=== PATIENT | female | born 1990 | race Caucasian/White ===

== ENCOUNTER 2017-08-30 03:20 | Emergency (ER) | payer OTHER ==
--- NOTE | 2017-08-30 03:46 | ED ---
General Adult HPI - General Source: patient, police, EMS, RN notes reviewed Mode of arrival: EMS Limitations: no limitations <Alo Patel - Last Filed: 08/30/17 03:38> <Richelle Quintana - Last Filed: 08/30/17 06:46> - General Chief complaint: Psychiatric Symptoms Stated complaint: suicidal Time Seen by Provider: 08/30/17 03:34 - History of Present Illness Initial comments: 26-year-old female presents to the emergency department for a chief complaint of suicidal ideation 1 day. Patient states her boyfriend cheated on her last week. She text it him today to tell him she was going to kill herself by overdosing on medications or turning on the car immediately running in the crotch. Patient states she is still feeling suicidal. Police did petition patient. Patient has no other complaints at this time including shortness of breath, chest pain, abdominal pain, nausea or vomiting, headache, or visual changes. (Alo Patel) - Related Data Home Medications Medication Instructions Recorded Confirmed Norgestimate-Ethinyl Estradiol 1 tab PO DAILY 08/21/15 08/30/17 [Mononessa 28 Tablet] Dicyclomine [Bentyl] 10 mg PO TID 01/16/16 08/30/17 Diphenoxylate HCl/Atropine 1 tab PO QID PRN 01/16/16 08/30/17 [Lomotil] Vilazodone HCl [Viibryd] 20 mg PO DAILY 01/16/16 08/30/17 Allergies Allergy/AdvReac Type Severity Reaction Status Date / Time No Known Allergies Allergy Verified 08/30/17 03:32 Review of Systems ROS Other: All systems not noted in ROS Statement are negative. <Alo Patel - Last Filed: 08/30/17 03:38> ROS Other: All systems not noted in ROS Statement are negative. <Richelle Quintana - Last Filed: 08/30/17 06:46> ROS Statement: Those systems with pertinent positive or pertinent negative responses have been documented in the HPI. Past Medical History Past Medical History: No Reported History History of Any Multi-Drug Resistant Organisms: None Reported Past Surgical History: No Surgical Hx Reported Additional Past Surgical History / Comment(s): EGD Past Anesthesia/Blood Transfusion Reactions: No Reported Reaction Past Psychological History: Anxiety, Bipolar, Depression Smoking Status: Current every day smoker - Past Family History Mother Family Medical History: No Reported History <Alo Patel - Last Filed: 08/30/17 03:38> General Exam Limitations: no limitations General appearance: alert, in no apparent distress Head exam: Present: atraumatic, normocephalic, normal inspection Eye exam: Present: normal appearance Respiratory exam: Present: normal lung sounds bilaterally. Absent: respiratory distress, wheezes, rales, rhonchi, stridor Cardiovascular Exam: Present: regular rate, normal rhythm, normal heart sounds. Absent: systolic murmur, diastolic murmur, rubs, gallop, clicks <Alo Patel - Last Filed: 08/30/17 03:38> Course <Alo Patel - Last Filed: 08/30/17 03:38> <Richelle Quintana - Last Filed: 08/30/17 06:46> Vital Signs 08/30/17 03:27 Temperature 99 F Pulse Rate 96 Respiratory 18 Rate Blood Pressure 126/60 O2 Sat by Pulse 99 Oximetry She has been evaluated by EPS, CPS is comfortable sending her home she is advised to follow up according to the direction or return to the ER if symptoms get worse (Richelle Quintana) Medical Decision Making <Alo Patel - Last Filed: 08/30/17 03:38> <Richelle Quintana - Last Filed: 08/30/17 06:46> - Medical Decision Making 26-year-old female here for suicidal ideation 1 day after her boyfriend cheated on her. Patient does have plan in place. Patient was brought in by police after they were called by ex-boyfriend and they petitioned her. (Alo Patel) Disposition <Alo Patel - Last Filed: 08/30/17 03:38> Is patient prescribed a controlled substance at d/c from ED?: No <Richelle Quintana - Last Filed: 08/30/17 06:46> Clinical Impression: Depression Disposition: HOME SELF-CARE Condition: Good Instructions: Depression (ED) Referrals: Preeti Chun MD [Primary Care Provider] - 1-2 days
[2017-08-30 07:01] VITALS: BP 119/65; PULSE 55; RESP 19; TEMP 98.5
== END 2017-08-30 07:14 | disposition home or self-care (01) ==
LOC: EC 03:20
DX: F32.9 Major depressive disorder, single episode, unspecified (principal); R45.851 Suicidal ideations; F41.9 Anxiety disorder, unspecified; F17.200 Nicotine dependence, unspecified, uncomplicated; Z79.3 Long term (current) use of hormonal contraceptives; Z79.899 Other long term (current) drug therapy
CPT/HCPCS: 82075; 99285

== ENCOUNTER → 2018-06-18 | Outpatient (CLI) | payer OTHER ==
--- NOTE | 2018-06-18 12:22 | US ---
EXAMINATION TYPE: US pelvic complete DATE OF EXAM: 06/18/2018 COMPARISON: NONE CLINICAL HISTORY: N92.1Excessive and frequent menstruation with irre. TECHNIQUE: . Transabdominal sonographic images of the pelvis were acquired. Date of LMP: About 4 weeks ago EXAM MEASUREMENTS: Uterus: 7.0 x 3.1 x 4.2 cm Endometrial Stripe: 0.8 cm Right Ovary: 2.8 x 1.5 x 1.9 cm Left Ovary: 3.5 x 1.8 x 2.4 cm 1. Uterus: Anteverted wnl 2. Endometrium: wnl 3. Right Ovary: wnl 4. Left Ovary: Follicle visualized measuring 1.5 cm 5. Bilateral Adnexa: wnl 6. Posterior cul-de-sac: wnl IMPRESSION: No distinct abnormality is seen.
== END ==
LOC: RADUSWWP 12:03
PROVIDERS: ATTEND Obstetrics & Gynecology
DX: N92.1 Excessive and frequent menstruation with irregular cycle (principal)
CPT/HCPCS: 76856

== ENCOUNTER → 2018-07-15 | Outpatient (CLI) | payer OTHER ==
--- NOTE | 2018-07-15 16:45 | MR ---
EXAMINATION TYPE: MR brain wo con DATE OF EXAM: 07/15/2018 COMPARISON: NONE HISTORY: Headache / Other visual disturbances TECHNIQUE: Multiplanar, multisequence imaging of the brain and brainstem is performed without IV cont rast. FINDINGS: Diffusion weighted images demonstrate no evidence of a recent infarct or other diffusion abnormality. There is no extraaxial fluid collection or significant white matter signal abnormality. The ventricu lar system and cisternal spaces are normal in size and appearance. The brain volume is age appropria te. Midline structures demonstrate normal morphology. The craniocervical junction appears within normal limits. Normal vascular flow voids are present. Dominant left vertebral artery is incidentally noted. The visualized sinuses are clear and the globes are intact. IMPRESSION: No suspicious finding is seen to account for patient's symptoms of headache and visual di sturbances.
== END | disposition home or self-care (01) ==
LOC: RADMRIMAIN 14:58
PROVIDERS: ATTEND Internal Medicine
DX: R51 Headache (principal)
CPT/HCPCS: 70551

== ENCOUNTER 2019-10-08 17:47 | Inpatient (IN) | payer OTHER ==
[2019-10-08] MEDS ORDERED: ACETAMINOPHEN TAB 500 MG TAB PO STA (18:36)
[2019-10-08] MEDS ORDERED: SODIUM CHLORIDE 0.9% 1,000 ML IV STA (18:36)
[2019-10-08 19:05] LABS: Basophils # (A) 0.2 k/uL (0-0.2); Basophils % (A) 1 %; Eosinophils # (A) 0.3 k/uL (0-0.7); Eosinophils % (A) 3 %; HCT 48.5 % (34.0-46.0); HGB 16.4 gm/dL (11.4-16.0); Lymphocytes # (A) 2.8 k/uL (1.0-4.8); Lymphocytes % (A) 22 %; MCH 31.8 pg (25.0-35.0); MCHC 33.8 g/dL (31.0-37.0); MCV 94.1 fL (80.0-100.0); Mean Platelet Volume 7.4; Monocytes # (A) 0.8 k/uL (0-1.0); Monocytes % (A) 7 %; Neutrophils # (A) 8.1 k/uL (1.3-7.7); Neutrophils % (A) 65 %; Platelet Count 185 k/uL (150-450); RBC 5.16 m/uL (3.80-5.40); RDW 11.9 % (11.5-15.5); WBC 12.5 k/uL (3.8-10.6)
[2019-10-08 19:22] LABS: ALT 18 U/L (4-34); AST 18 U/L (14-36); African American GFR (CKD) >90 (>60 ml/min/1.73 sqM); Albumin 4.6 g/dL (3.5-5.0); Alkaline Phosphatase 48 U/L (38-126); Anion Gap 10 mmol/L; Blood Urea Nitrogen 12 mg/dL (7-17); Calcium 9.6 mg/dL (8.4-10.2); Carbon Dioxide 20 mmol/L (22-30); Chloride 107 mmol/L (98-107); Glucose 102 mg/dL (74-99); Non-African American GFR(CKD) >90 (>60 ml/min/1.73 sqM); Sodium 137 mmol/L (137-145); Total Bilirubin 0.3 mg/dL (0.2-1.3); Total Protein 7.3 g/dL (6.3-8.2)
--- NOTE | 2019-10-08 19:31 | XR ---
EXAMINATION TYPE: XR chest 2V DATE OF EXAM: 10/08/2019 COMPARISON: None INDICATION: Fever, neck pain TECHNIQUE: Frontal and lateral views of the chest are obtained. FINDINGS: The heart size is normal. The pulmonary vasculature is normal. The lungs are clear. Mild scoliosis within the thoracic spine IMPRESSION: 1. No acute pulmonary process.
--- NOTE | 2019-10-08 20:18 | ED ---
General Adult HPI - General Chief complaint: Fever Stated complaint: fever, sore throat, joint pain Time Seen by Provider: 10/08/19 18:26 Source: patient, RN notes reviewed, old records reviewed Mode of arrival: ambulatory Limitations: no limitations - History of Present Illness Initial comments: 28-year-old female presented for evaluation of fever, headache, sore throat. Patient additionally admits to having dysuria and thinks she may have a slight UTI. Her mother was recently diagnosed with pneumonia and ultimately secondary to this infection. She denies any known exposure to coronavirus. She denies abdominal pain. She states she has had some rhinorrhea but states this is secondary to crying and has not had much nasal congestion. She does report sore throat and mild cough. She is a current smoker. No history of asthma. - Related Data Home Medications Medication Instructions Recorded Confirmed Norgestimate-Ethinyl Estradiol 1 tab PO DAILY 08/21/15 08/30/17 [Mononessa 28 Tablet] Dicyclomine [Bentyl] 10 mg PO TID 01/16/16 08/30/17 Diphenoxylate HCl/Atropine 1 tab PO QID PRN 01/16/16 08/30/17 [Lomotil] Vilazodone HCl [Viibryd] 20 mg PO DAILY 01/16/16 08/30/17 Allergies Allergy/AdvReac Type Severity Reaction Status Date / Time No Known Allergies Allergy Verified 10/08/19 18:19 Review of Systems ROS Statement: Those systems with pertinent positive or pertinent negative responses have been documented in the HPI. ROS Other: All systems not noted in ROS Statement are negative. Past Medical History Past Medical History: No Reported History History of Any Multi-Drug Resistant Organisms: None Reported Past Surgical History: No Surgical Hx Reported Additional Past Surgical History / Comment(s): EGD, Past Anesthesia/Blood Transfusion Reactions: No Reported Reaction Past Psychological History: Anxiety, Bipolar, Depression Smoking Status: Current every day smoker Past Alcohol Use History: Occasional Past Drug Use History: None Reported - Past Family History Mother Family Medical History: No Reported History General Exam Limitations: no limitations General appearance: alert, in no apparent distress Head exam: Present: atraumatic, normocephalic Eye exam: Present: normal appearance, PERRL ENT exam: Present: other (Nasal congestion, pharyngeal erythema no tonsillar swelling or exudate) Neck exam: Present: normal inspection. Absent: tenderness, meningismus Respiratory exam: Present: normal lung sounds bilaterally. Absent: respiratory distress, wheezes Cardiovascular Exam: Present: normal rhythm, tachycardia GI/Abdominal exam: Present: soft. Absent: distended, tenderness, guarding Neurological exam: Present: alert, oriented X3, CN II-XII intact. Absent: motor sensory deficit Psychiatric exam: Present: normal affect, normal mood Skin exam: Present: warm, dry, intact. Absent: cyanosis, diaphoretic Course Vital Signs 10/08/19 18:14 Temperature 101.3 F H Pulse Rate 116 H Respiratory 18 Rate Blood Pressure 99/58 O2 Sat by Pulse 98 Oximetry Medical Decision Making - Medical Decision Making 38-year-old female presenting with fever, sore throat, myalgias, headache, mild cough, chest x-ray negative for focal pneumonia. White blood cell count 12.5, hemoglobin is 16.5 likely secondary to dehydration and concentration. She has a normal lactic acid. She did have some pharyngitis on exam, both heterophile and strep testing are negative. Urinalysis is contaminated but shows concern for UTI and the patient does complain of some dysuria. She has been treated awaiting these culture results. Patient has marginally low blood pressure, feels generally unwell. Will be admitted for IV fluids. I do have a suspicion for coronavirus in this patient, this test is pending. She will be kept in isolation awaiting test results. Patient did mention that she had a stiff neck, she has no nuchal rigidity. She is alert and otherwise well-appearing. I suspect likely viral syndrome rather than acute bacterial meningitis. - Lab Data Result diagrams: 10/08/19 18:45 10/08/19 18:45 Lab Results 10/08/19 10/08/19 10/08/19 Range/Units 18:45 18:45 18:45 WBC 12.5 H (3.8-10.6) k/uL RBC 5.16 (3.80-5.40) m/uL Hgb 16.4 H (11.4-16.0) gm/dL Hct 48.5 H (34.0-46.0) % MCV 94.1 (80.0-100.0) fL MCH 31.8 (25.0-35.0) pg MCHC 33.8 (31.0-37.0) g/dL RDW 11.9 (11.5-15.5) % Plt Count 185 (150-450) k/uL Neutrophils % 65 % Lymphocytes % 22 % Monocytes % 7 % Eosinophils % 3 % Basophils % 1 % Neutrophils # 8.1 H (1.3-7.7) k/uL Lymphocytes # 2.8 (1.0-4.8) k/uL Monocytes # 0.8 (0-1.0) k/uL Eosinophils # 0.3 (0-0.7) k/uL Basophils # 0.2 (0-0.2) k/uL Sodium 137 (137-145) mmol/L Potassium 4.0 (3.5-5.1) mmol/L Chloride 107 (98-107) mmol/L Carbon Dioxide 20 L (22-30) mmol/L Anion Gap 10 mmol/L BUN 12 (7-17) mg/dL Creatinine 0.65 (0.52-1.04) mg/dL Est GFR (CKD-EPI)AfAm >90 (>60 ml/min/1.73 sqM) Est GFR (CKD-EPI)NonAf >90 (>60 ml/min/1.73 sqM) Glucose 102 H (74-99) mg/dL Plasma Lactic Acid Chin (0.7-2.0) mmol/L Calcium 9.6 (8.4-10.2) mg/dL Total Bilirubin 0.3 (0.2-1.3) mg/dL AST 18 (14-36) U/L ALT 18 (4-34) U/L Alkaline Phosphatase 48 (38-126) U/L Total Protein 7.3 (6.3-8.2) g/dL Albumin 4.6 (3.5-5.0) g/dL Urine Color Urine Appearance (Clear) Urine pH (5.0-8.0) Ur Specific Sidney (1.001-1.035) Urine Protein (Negative) Urine Glucose (UA) (Negative) Urine Ketones (Negative) Urine Blood (Negative) Urine Nitrite (Negative) Urine Bilirubin (Negative) Urine Urobilinogen (<2.0) mg/dL Ur Leukocyte Esterase (Negative) Urine RBC (0-5) /hpf Urine WBC (0-5) /hpf Ur Squamous Epith Cells (0-4) /hpf Urine Bacteria (None) /hpf Urine Mucus (None) /hpf Urine HCG, Qual (Not Detectd) Heterophile Antibody Negative (Negative) Group A Strep Rapid (Negative) 10/08/19 10/08/19 10/08/19 Range/Units 18:45 18:45 20:20 WBC (3.8-10.6) k/uL RBC (3.80-5.40) m/uL Hgb (11.4-16.0) gm/dL Hct (34.0-46.0) % MCV (80.0-100.0) fL MCH (25.0-35.0) pg MCHC (31.0-37.0) g/dL RDW (11.5-15.5) % Plt Count (150-450) k/uL Neutrophils % % Lymphocytes % % Monocytes % % Eosinophils % % Basophils % % Neutrophils # (1.3-7.7) k/uL Lymphocytes # (1.0-4.8) k/uL Monocytes # (0-1.0) k/uL Eosinophils # (0-0.7) k/uL Basophils # (0-0.2) k/uL Sodium (137-145) mmol/L Potassium (3.5-5.1) mmol/L Chloride (98-107) mmol/L Carbon Dioxide (22-30) mmol/L Anion Gap mmol/L BUN (7-17) mg/dL Creatinine (0.52-1.04) mg/dL Est GFR (CKD-EPI)AfAm (>60 ml/min/1.73 sqM) Est GFR (CKD-EPI)NonAf (>60 ml/min/1.73 sqM) Glucose (74-99) mg/dL Plasma Lactic Acid Chin 0.9 (0.7-2.0) mmol/L Calcium (8.4-10.2) mg/dL Total Bilirubin (0.2-1.3) mg/dL AST (14-36) U/L ALT (4-34) U/L Alkaline Phosphatase (38-126) U/L Total Protein (6.3-8.2) g/dL Albumin (3.5-5.0) g/dL Urine Color Yellow Urine Appearance Cloudy H (Clear) Urine pH 5.5 (5.0-8.0) Ur Specific Sidney 1.028 (1.001-1.035) Urine Protein Trace H (Negative) Urine Glucose (UA) Negative (Negative) Urine Ketones 1+ H (Negative) Urine Blood Trace H (Negative) Urine Nitrite Negative (Negative) Urine Bilirubin Negative (Negative) Urine Urobilinogen <2.0 (<2.0) mg/dL Ur Leukocyte Esterase Moderate H (Negative) Urine RBC 4 (0-5) /hpf Urine WBC 10 H (0-5) /hpf Ur Squamous Epith Cells 21 H (0-4) /hpf Urine Bacteria Many H (None) /hpf Urine Mucus Many H (None) /hpf Urine HCG, Qual (Not Detectd) Heterophile Antibody (Negative) Group A Strep Rapid Negative (Negative) 10/08/19 Range/Units 20:20 WBC (3.8-10.6) k/uL RBC (3.80-5.40) m/uL Hgb (11.4-16.0) gm/dL Hct (34.0-46.0) % MCV (80.0-100.0) fL MCH (25.0-35.0) pg MCHC (31.0-37.0) g/dL RDW (11.5-15.5) % Plt Count (150-450) k/uL Neutrophils % % Lymphocytes % % Monocytes % % Eosinophils % % Basophils % % Neutrophils # (1.3-7.7) k/uL Lymphocytes # (1.0-4.8) k/uL Monocytes # (0-1.0) k/uL Eosinophils # (0-0.7) k/uL Basophils # (0-0.2) k/uL Sodium (137-145) mmol/L Potassium (3.5-5.1) mmol/L Chloride (98-107) mmol/L Carbon Dioxide (22-30) mmol/L Anion Gap mmol/L BUN (7-17) mg/dL Creatinine (0.52-1.04) mg/dL Est GFR (CKD-EPI)AfAm (>60 ml/min/1.73 sqM) Est GFR (CKD-EPI)NonAf (>60 ml/min/1.73 sqM) Glucose (74-99) mg/dL Plasma Lactic Acid Chin (0.7-2.0) mmol/L Calcium (8.4-10.2) mg/dL Total Bilirubin (0.2-1.3) mg/dL AST (14-36) U/L ALT (4-34) U/L Alkaline Phosphatase (38-126) U/L Total Protein (6.3-8.2) g/dL Albumin (3.5-5.0) g/dL Urine Color Urine Appearance (Clear) Urine pH (5.0-8.0) Ur Specific Sidney (1.001-1.035) Urine Protein (Negative) Urine Glucose (UA) (Negative) Urine Ketones (Negative) Urine Blood (Negative) Urine Nitrite (Negative) Urine Bilirubin (Negative) Urine Urobilinogen (<2.0) mg/dL Ur Leukocyte Esterase (Negative) Urine RBC (0-5) /hpf Urine WBC (0-5) /hpf Ur Squamous Epith Cells (0-4) /hpf Urine Bacteria (None) /hpf Urine Mucus (None) /hpf Urine HCG, Qual Not Detected (Not Detectd) Heterophile Antibody (Negative) Group A Strep Rapid (Negative) Disposition Clinical Impression: Viral infection, UTI (urinary tract infection), Dehydration Disposition: ADMITTED IP TO THIS [facility] Condition: Stable Is patient prescribed a controlled substance at d/c from ED?: No Referrals: Preeti Chun MD [Primary Care Provider] - 1-2 days Decision to Admit Reason: Admit from EC Decision Date: 10/08/19 Decision Time: 21:14
[2019-10-08 20:44] LABS: Appearance,Urine Cloudy (Clear); Bacteria,Urine Many /hpf; Bilirubin,Urine Negative (Negative); Blood,Urine Trace (Negative); Color,Urine Yellow; Glucose,Urine (UA) Negative (Negative); Ketones,Urine 1+ (Negative); Leukocyte Esterase,Urine Moderate (Negative); Mucus,Urine Many /hpf; Nitrite,Urine Negative (Negative); PH, Urine 5.5 (5.0-8.0); Protein,Urine Trace (Negative); RBC,Urine 4 /hpf (0-5); Specific Gravity,Urine 1.028 (1.001-1.035); Squamous Epithelial Cell,Urine 21 /hpf (0-4); Urobilinogen,Urine <2.0 mg/dL (<2.0); WBC,Urine 10 /hpf (0-5)
[2019-10-08] MEDS ORDERED: KETOROLAC 15 MG/ML 1 ML VIAL IVP STA (20:57)
[2019-10-08] MEDS ORDERED: cefTRIAXone IN SWFI 1,000 MG/10 ML SYRINGE IVP STA (21:09)
[2019-10-08] MEDS ORDERED: ACETAMINOPHEN TAB 325 MG TAB PO PRN (21:10)
[2019-10-08] MEDS ORDERED: NALOXONE 0.4 MG/ML 1 ML VIAL IV PRN (21:10)
[2019-10-08] MEDS: SODIUM CHLORIDE 0.9% 1,000 ML IV SCH (21:29)
[2019-10-08] MEDS: KETOROLAC 15 MG/ML 1 ML VIAL IVP SCH (23:36)
[2019-10-08] MEDS ORDERED: TEMAZEPAM 15 MG CAP PO PRN (23:50)
[2019-10-08] MEDS ORDERED: HYDROmorphone 0.5 MG/0.5 ML SYRINGE IVP PRN (23:50)
[2019-10-08] MEDS ORDERED: ALPRAZolam 0.25 MG TAB PO PRN (23:50)
[2019-10-09] MEDS: SODIUM CHLORIDE 0.9% 1,000 ML IV SCH ×3 (03:59→21:26)
[2019-10-09] MEDS: KETOROLAC 15 MG/ML 1 ML VIAL IVP SCH ×4 (05:17→23:23)
--- NOTE | 2019-10-09 05:26 | HP ---
HISTORY AND PHYSICAL DATE OF SERVICE: 10/08/2019 CHIEF COMPLAINTS: Fevers, sore throat, neck pain and headache. HISTORY OF PRESENT ILLNESS: This is a 28-year-old woman with a past medical history of multiple medical problems including history of VSD repair, history of DJD, anxiety, bipolar depression, history of nicotine dependence, being followed by Dr. Chun in the outpatient setting, not feeling well for the last 2 days. The patient is complaining of severe pain, throat pain and as well as a headache and neck pain. Patient also was febrile. Patient's fevers was 101. The patient was suspected to have UTI. Recently apparently the mother was diagnosed with pneumonia. Mother also had lung cancer and ultimately because of infection recently. No details are known at this time. 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 The patient does not have any other contact with sick individuals. There is no history of rash. No history of any loss of consciousness or seizures at this time. The strep screen was negative. WBC was elevated to 12.5. COVID-19 testing is pending at this time. Patient does has evidence of mild UTI. There is no history of any hematochezia or melena at this time. The patient also had previously self-inflicted wounds. PAST MEDICAL HISTORY: History of VSD repair, DJD, anxiety with bipolar depression. HOME MEDICATIONS: Vitamin D 2, vitamins, Tylenol, biotin. ALLERGIES: None. FAMILY HISTORY: No history of heart disease or strokes in the family. SOCIAL HISTORY: History of smoking. Occasional alcohol intake. REVIEW OF SYSTEMS: ENT: No diminished vision or hearing. CARDIOVASCULAR: No angina or palpitations. RESPIRATORY: No cough or hemoptysis. GI: As mentioned earlier. : No dysuria. NERVOUS SYSTEM: No numbness or weakness. ALLERGY/IMMUNOLOGY: No asthma or hayfever. MUSCULOSKELETAL: As mentioned earlier. HEMATOLOGY: No history of anemia. ENDOCRINE: No history of diabetes or hypothyroidism. CONSTITUTIONAL: As mentioned earlier. DERMATOLOGY: Negative. RHEUMATOLOGY: Negative. PSYCHIATRY: As mentioned earlier. PHYSICAL EXAM: GENERAL: Patient is alert, oriented x3. VITAL SIGNS: Pulse is 80, blood pressure 107/69, respirations 16, temperature is 101.3, pulse ox 98% on room air. HEENT: Conjunctivae normal. Oral mucosa shows some erythema and tonsillar enlargement also present. NECK: No jugular venous distention. No carotid bruits. No lymph node enlargement. Movements are painful, otherwise no neck stiffness appreciated. RESPIRATORY: Breath sounds diminished at the bases. HEART: S1 and S2, muffled. ABDOMEN: Soft, no tenderness. No masses palpable. EXTREMITIES: No edema, no swelling. NERVOUS SYSTEM: Higher functions as mentioned earlier. Moves all 4 limbs. No focal motor or sensory deficit. LYMPHATICS: No lymph nodes in the neck or axilla. SKIN: No ulcer, rash, bleeding. JOINTS: No active deforming arthropathy. LAB: WBC 12.4, hemoglobin 16.4, CO2 is 20, and glucose 102. UA noted. The antibody and group A strep was negative. ASSESSMENT: 1. Fever, throat pain, possible upper respiratory infection, rule out COVID-19. 2. Headache for evaluation. 3. Increased WBC. 4. Urinary tract infection present on admission with possible early sepsis present on admission. 5. History of VSD repair. 6. History of anxiety, bipolar depression. 7. History of ongoing nicotine dependence. 8. FULL CODE. RECOMMENDATIONS AND DISCUSSION: In this 28-year-old woman who presented with multiple medical issues, we will initiate broad-spectrum IV antibiotics. I would recommend Rocephin 2 grams daily and Infectious Disease evaluation. Symptomatic treatment for the pain. DVT prophylaxis. COVID- 19 has been tested. Infectious Disease evaluation. Resume the home medications. Prognosis guarded because of multiple complex medical issues. MMODL / IJN: [id number] / MTDD
[2019-10-09 07:55] LABS: Basophils # (A) 0.1 k/uL (0-0.2); Basophils % (A) 1 %; Eosinophils # (A) 0.3 k/uL (0-0.7); Eosinophils % (A) 3 %; Lymphocytes # (A) 2.6 k/uL (1.0-4.8); Lymphocytes % (A) 28 %; MCH 31.5 pg (25.0-35.0); MCHC 32.9 g/dL (31.0-37.0); MCV 95.7 fL (80.0-100.0); Mean Platelet Volume 7.3; Monocytes % (A) 11 %; Neutrophils # (A) 5.3 k/uL (1.3-7.7); Neutrophils % (A) 56 %; Platelet Count 145 k/uL (150-450); RBC 4.18 m/uL (3.80-5.40); RDW 11.9 % (11.5-15.5); WBC 9.4 k/uL (3.8-10.6)
[2019-10-09 08:06] LABS: HGB 13.2 gm/dL (11.4-16.0)
[2019-10-09] MEDS: HEPARIN SODIUM,PORCINE 5,000 UNIT/ML 1 ML VIAL SQ SCH ×2 (08:21→21:26)
[2019-10-09 08:34] LABS: ALT 13 U/L (4-34); AST 13 U/L (14-36); African American GFR (CKD) >90 (>60 ml/min/1.73 sqM); Albumin 3.1 g/dL (3.5-5.0); Alkaline Phosphatase 35 U/L (38-126); Anion Gap 4 mmol/L; Blood Urea Nitrogen 11 mg/dL (7-17); C Reactive Protein 20.3 mg/L (<10.0); Calcium 8.1 mg/dL (8.4-10.2); Carbon Dioxide 22 mmol/L (22-30); Chloride 110 mmol/L (98-107); Glucose 86 mg/dL (74-99); Non-African American GFR(CKD) >90 (>60 ml/min/1.73 sqM); Potassium 3.9 mmol/L (3.5-5.1); Sodium 136 mmol/L (137-145); Total Bilirubin 0.2 mg/dL (0.2-1.3); Total Protein 5.3 g/dL (6.3-8.2)
[2019-10-09] MEDS ORDERED: ERGOCALCIFEROL 50,000 UNIT CAP PO SCH (09:00)
[2019-10-09 09:14] LABS: Erythrocyte Sedimentation Rate 4 mm/hr (0-20)
[2019-10-09 12:34] VITALS: BMI 21.1
--- NOTE | 2019-10-09 13:30 | CT ---
EXAMINATION TYPE: CT brain wo con DATE OF EXAM: 10/09/2019 COMPARISON: MRI brain 07/15/2018 INDICATION: Headache DLP: 1098.4 mGycm, Automated exposure control for dose reduction was used. CONTRAST: None CT of the brain is performed utilizing 3 mm thick sections through the posterior fossa and 3 mm thick sections through the remaining calvarium. Study is performed within 24 hours of arrival to the hosp ital. No abnormal hyperdensity is present to suggest an acute intracranial hemorrhage. No mass lesion is evident. No acute infarcts are evident. Ventricles and sulci are appropriate for the patient age. Paranasal sinuses and mastoid air cells within the [id number] are clear. IMPRESSIONS: 1. Normal CT Brain
--- NOTE | 2019-10-09 14:08 | CT ---
CT CHEST FOR PULMONARY EMBOLISM. EXAMINATION TYPE: CT angio chest DATE OF EXAM: 10/09/2019 INDICATION: Increased D-dimer CT DLP: 278.5 mGycm, Automated exposure control for dose reduction was used. CONTRAST: Patient injected with 100 ml mL of Isovue 370. COMPARISON: None TECHNIQUE: CT of the chest is performed on a spiral scan at 2 mm thick sections. Study is performed with intravenous contrast timed for evaluation for pulmonary embolism. This will limit additional po rtions of the evaluation. 3-D MIP images reconstructed by the technologist are reviewed on the compu ter in the coronal and sagittal planes. FINDINGS: No persistent filling defects are evident to suggest an acute pulmonary embolism. There is some thickening within the right infrahilar region measuring 1.5 cm. Series 401 image 76. Hi lar adenopathy may be present. An additional lymph node may be present right perihilar region measuri ng 1.2 cm. Series 401 image 63. There may be a subcarinal lymph node measuring 1.1 cm. The ascending aorta diameter at the level of the main pulmonary artery is 2.6 cm. The main pulmonary artery diamet er at the bifurcation is 2.1 cm. There is ar density within the posterior medial right midlung measuring 1.7 x 2.2 cm. Series 401 imag e 72. Some additional oval density is within the posterior medial right midlung adjacent to the pleur al margin measuring 1.6 x 0.9 cm. Series 401 image 76. Pneumonia should be considered. Underlying calvin plasm should be considered. Follow-up is recommended. Limited CT section through the upper abdomen are unremarkable. IMPRESSIONS: 1. No acute pulmonary embolism. 2. Couple of nodular densities within the posterior medial right midlung. Infection and neoplasm are within the differential. Additional workup is recommended. Consider PET/CT. 3. Suspected enlarged right hilar and subcarinal adenopathy. PET/CT could further evaluate these find ings
[2019-10-09] MEDS: HYDROcodone/APAP 5-325MG 1 EACH TAB PO PRN ×2 (17:10→23:21)
--- NOTE | 2019-10-09 17:36 | PN ---
PROGRESS NOTE DATE OF SERVICE: 10/09/2019 This 28-year-old woman who was admitted with fever, sore throat, upper respiratory infection, is also complaining of severe headache. Patient is started on empiric antibiotics. No chest pain. No palpitations. No fever. Chest CT was done earlier today which showed upper nodular densities in the posterior medial lung, possibly outpatient followup and some suspected right hilar and subcarinal adenopathy also. No chest pain. No palpitations. No fever. PHYSICAL EXAMINATION: Alert and oriented times three. Pulse 73. Blood pressure 106/73, respiration 18, temperature 98.6, pulse ox 99% on room air. HEENT: Conjunctivae normal. NECK: No JVD. CARDIOVASCULAR: S1, S2. RESPIRATORY: Breath sounds diminished in the bases. A few scattered scattered rhonchi. ABDOMEN: Soft. NERVOUS SYSTEM: No focal deficits. The movements in the neck are painful but no neck stiffness. LABS: WBC 9, hemoglobin 13.2, sodium 136 and C-reactive protein is 20.3. UA showed some possible UTI. ASSESSMENT: 1. Fever, throat pain, possible upper respiratory infection. Rule out COVID-19. 2. Headache for evaluation. 3. Increased WBC. 4. Abnormal CT scan with subcarinal lymphadenopathy. 5. Urinary tract infection present on admission with possible early sepsis present on admission. 6. History of VSD repair. 7. History of anxiety/bipolar depression. 8. History of continued ongoing nicotine dependence. 9. FULL CODE. RECOMMENDATIONS AND DISCUSSION: Recommend to continue current medications, management, symptomatic treatment. Continue with antibiotics. Otherwise I would also recommend infectious disease evaluation and I would also ask Pulmonary to evaluate for the lymph nodes as an outpatient. Otherwise, prognosis guarded. Further recommendations to follow. MMODL / IJN: [id number] /
[2019-10-09] MEDS: PRENATAL VIT-IRON-FOLIC ACID 1 EACH CAP PO SCH (21:26)
[2019-10-10] MEDS: SODIUM CHLORIDE 0.9% 1,000 ML IV SCH ×4 (04:24→23:05)
[2019-10-10] MEDS: KETOROLAC 15 MG/ML 1 ML VIAL IVP SCH ×4 (05:45→23:04)
--- NOTE | 2019-10-10 07:04 | P.CONS ---
History of Present Illness - Reason for Consult Consult date: 10/09/19 Fever Requesting physician: Monserrat Dean - Chief Complaint Fever dysuria x few days - History of Present Illness Patient is 28 female with past medical history significant for recurrent urinary tract infection patient had presented to [facility] last night for evaluation of fever and headache and sore throat patient still has going on for a few days before presenting to the hospital patient also complaining of burning of urine and some suprapubic discomfort which are typical of her electric infection patient denies having any chest pain or shortness of breath or cough denies any nausea no vomiting no diarrhea with the symptoms the patient has been evaluated by the physician on arrival to ER, patient did have a fever of 101F patient did have elevated white count of 12.5 thousand kidney function was normal his liver enzymes are normal CRP elevated and the patient did have a positive urine, chest x-ray has been negative she developed gram was negative for PE however did show some nodularity within posterior medial right mid lung, infection he was consulted for further management of antibiotic therapy patient is currently on Rocephin 2 g daily and did have resolution of her fever Review of Systems Positive point has been mentioned in the HPI rest of the systems are negative Past Medical History Past Medical History: No Reported History Additional Past Medical History / Comment(s): VSD History of Any Multi-Drug Resistant Organisms: None Reported Past Surgical History: No Surgical Hx Reported Additional Past Surgical History / Comment(s): EGD, Past Anesthesia/Blood Transfusion Reactions: No Reported Reaction Past Psychological History: Anxiety, Bipolar, Depression Smoking Status: Current every day smoker Past Alcohol Use History: Occasional Past Drug Use History: None Reported - Past Family History Mother Family Medical History: No Reported History Medications and Allergies Home Medications Medication Instructions Recorded Confirmed Type Acetaminophen [Tylenol] 1,000 mg PO DAILY PRN 10/08/19 10/08/19 History Biotin (Unknown Strength) 1 tab PO HS 10/08/19 10/08/19 History Ergocalciferol [Vitamin D2 50,000 unit PO Q7D 10/08/19 10/08/19 History (DRISDOL)] Pnv,Calcium 72/Iron/Folic Acid 1 tab PO HS 10/08/19 10/08/19 History [ Plus Tablet] Allergies Allergy/AdvReac Type Severity Reaction Status Date / Time No Known Allergies Allergy Verified 10/08/19 21:31 Physical Exam Vitals: Vital Signs Temp Pulse Pulse Pulse Resp BP BP 10/09/19 15:00 98.6 F 73 19 106/70 10/09/19 07:00 98.5 F 60 18 91/53 10/09/19 03:58 109/73 10/09/19 02:30 97.8 F 65 16 96/54 10/08/19 22:15 98.0 F 77 19 96/63 10/08/19 21:33 98.3 F 80 16 107/69 10/08/19 18:14 101.3 F H 116 H 18 99/58 Pulse Ox 10/09/19 15:00 99 10/09/19 07:00 98 10/09/19 03:58 10/09/19 02:30 99 10/08/19 22:15 97 10/08/19 21:33 98 10/08/19 18:14 98 Intake and Output 10/09/19 10/09/19 10/09/19 06:59 14:59 22:59 Intake Total 1040 1040 Balance 1040 1040 Intake: Intake, IV Titration 1040 1040 Amount Sodium Chloride 0.9% 1, 1040 1040 000 ml @ 130 mls/hr IV . Q7H42M [facility] Rx#:[id number] Other: Voiding Method Toilet # Voids 2 2 Weight 61.235 kg GENERAL DESCRIPTION: Middle-aged female lying in bed, no distress. No tachypnea or accessory muscle of respiration use. HEENT: Shows Pallor , no scleral icterus. Oral mucous membrane is dry. No pharyngeal erythema or thrush NECK: Trachea central, no thyromegaly. LUNGS: Unlabored breathing. Clear to auscultation anteriorly. No wheeze or crackle. HEART: S1, S2, regular rate and rhythm. No loud murmur ABDOMEN: Soft, no tenderness , guarding or rigidity, no organomegaly EXTREMITIES: No edema of feet. SKIN: No rash, no masses palpable. NEUROLOGICAL: The patient is awake, alert, oriented x3, mood and affect normal. Results CBC & Chem 7: 10/09/19 07:20 10/09/19 07:20 Labs: Abnormal Lab Results - Last 24 Hours (Table) 10/08/19 10/08/19 10/08/19 Range/Units 18:45 18:45 20:20 WBC 12.5 H (3.8-10.6) k/uL Hgb 16.4 H (11.4-16.0) gm/dL Hct 48.5 H (34.0-46.0) % Plt Count (150-450) k/uL Neutrophils # 8.1 H (1.3-7.7) k/uL D-Dimer (<0.60) mg/L FEU Sodium (137-145) mmol/L Chloride (98-107) mmol/L Carbon Dioxide 20 L (22-30) mmol/L Glucose 102 H (74-99) mg/dL Calcium (8.4-10.2) mg/dL AST (14-36) U/L Alkaline Phosphatase (38-126) U/L C-Reactive Protein (<10.0) mg/L Total Protein (6.3-8.2) g/dL Albumin (3.5-5.0) g/dL Urine Appearance Cloudy H (Clear) Urine Protein Trace H (Negative) Urine Ketones 1+ H (Negative) Urine Blood Trace H (Negative) Ur Leukocyte Esterase Moderate H (Negative) Urine WBC 10 H (0-5) /hpf Ur Squamous Epith Cells 21 H (0-4) /hpf Urine Bacteria Many H (None) /hpf Urine Mucus Many H (None) /hpf 10/09/19 10/09/19 10/09/19 Range/Units 07:20 07:20 07:20 WBC (3.8-10.6) k/uL Hgb (11.4-16.0) gm/dL Hct (34.0-46.0) % Plt Count 145 L (150-450) k/uL Neutrophils # (1.3-7.7) k/uL D-Dimer 0.63 H (<0.60) mg/L FEU Sodium 136 L (137-145) mmol/L Chloride 110 H (98-107) mmol/L Carbon Dioxide (22-30) mmol/L Glucose (74-99) mg/dL Calcium 8.1 L (8.4-10.2) mg/dL AST 13 L (14-36) U/L Alkaline Phosphatase 35 L (38-126) U/L C-Reactive Protein 20.3 H (<10.0) mg/L Total Protein 5.3 L (6.3-8.2) g/dL Albumin 3.1 L (3.5-5.0) g/dL Urine Appearance (Clear) Urine Protein (Negative) Urine Ketones (Negative) Urine Blood (Negative) Ur Leukocyte Esterase (Negative) Urine WBC (0-5) /hpf Ur Squamous Epith Cells (0-4) /hpf Urine Bacteria (None) /hpf Urine Mucus (None) /hpf Microbiology - Last 24 Hours (Table) 10/08/19 18:45 Group A Strep Throat Culture - Preliminary Throat Assessment and Plan Assessment: 1- patient is in the hospital with sepsis in this patient who did have a fever and elevated white count patient did have dysuria and a positive UA likely secondary to urinary tract infection, and will need to cover for enteric gram- negative with the likely pathogen patient currently denies having respiratory symptoms clinically doubt pneumonia and there is no evidence of infection at any other part of the body (1) Sepsis Current Visit: Yes Status: Acute Code(s): A41.9 - SEPSIS, UNSPECIFIED ORGANISM SNOMED Code(s): 08253080 (2) UTI (urinary tract infection) Current Visit: Yes Status: Acute Code(s): N39.0 - URINARY TRACT INFECTION, SITE NOT SPECIFIED SNOMED Code(s): 40346418 Plan: 1- Rocephin 2 g IV piggyback daily 2-gentle IV fluid We will follow on clinical condition and cultures to further adjust medication if needed Thank you for this consultation will follow this patient with you Time with Patient: Greater than 30
[2019-10-10] MEDS: HYDROcodone/APAP 5-325MG 1 EACH TAB PO PRN ×3 (08:36→23:05)
[2019-10-10] MEDS: HEPARIN SODIUM,PORCINE 5,000 UNIT/ML 1 ML VIAL SQ SCH (08:37)
[2019-10-10 12:32] LABS: Basophils # (A) 0.1 k/uL (0-0.2); Basophils % (A) 1 %; Eosinophils # (A) 0.1 k/uL (0-0.7); Eosinophils % (A) 2 %; HCT 42.1 % (34.0-46.0); HGB 13.6 gm/dL (11.4-16.0); Lymphocytes # (A) 2.2 k/uL (1.0-4.8); Lymphocytes % (A) 29 %; MCH 30.9 pg (25.0-35.0); MCHC 32.3 g/dL (31.0-37.0); MCV 95.6 fL (80.0-100.0); Mean Platelet Volume 7.4; Monocytes # (A) 0.7 k/uL (0-1.0); Monocytes % (A) 9 %; Neutrophils # (A) 4.3 k/uL (1.3-7.7); Neutrophils % (A) 57 %; Platelet Count 125 k/uL (150-450); WBC 7.6 k/uL (3.8-10.6)
[2019-10-10 12:53] LABS: African American GFR (CKD) >90 (>60 ml/min/1.73 sqM); Anion Gap 5 mmol/L; Blood Urea Nitrogen 6 mg/dL (7-17); Calcium 8.1 mg/dL (8.4-10.2); Carbon Dioxide 23 mmol/L (22-30); Chloride 108 mmol/L (98-107); Glucose 84 mg/dL (74-99); Non-African American GFR(CKD) >90 (>60 ml/min/1.73 sqM); Potassium 3.9 mmol/L (3.5-5.1); Sodium 136 mmol/L (137-145)
--- NOTE | 2019-10-10 16:02 | PN ---
PROGRESS NOTE DATE OF SERVICE: 10/10/2019 This is a 28-year-old woman who was admitted with fever, throat pain with possible upper respiratory infection is being closely monitored. COVID-19 is negative. Patient is on empiric antibiotics. Neck pain is still persisting. There is no neck stiffness. The cultures are negative so far. The white count is 7.6, platelets are 125. is 20.3. ASSESSMENT: 1. Fever, throat pain, possible upper respiratory infection, viral syndrome, COVID-19 ruled out. 2. Headache for evaluation secondary to viral syndrome. 3. Increased WBC, improved. 4. Thrombocytopenia. 5. Abdominal CAT scan with subcarinal lymphadenopathy. 6. Urinary tract infection, present on admission with possible early sepsis, present on admission. 7. History of VSD repair. 8. History of anxiety, depression bipolar. 9. History of continued ongoing nicotine dependence. 10.FULL CODE. RECOMMENDATION: Recommend to continue current medications, symptomatic treatment. Otherwise, continue with the antibiotics. I would stop the heparin at this time. Otherwise, will continue to monitor. Guarded prognosis because of multiple complex medical issues. Will closely follow with Infectious Disease. As mentioned earlier, cultures are negative. Further recommendation to follow. MMODL / IJN: [id number] / LEENA
[2019-10-10] MEDS: PRENATAL VIT-IRON-FOLIC ACID 1 EACH CAP PO SCH (19:47)
--- NOTE | 2019-10-10 22:35 | PN ---
PROGRESS NOTE DATE OF SERVICE: 10/10/2019 REASON FOR FOLLOWUP: Urinary tract infection. INTERVAL HISTORY: The patient is currently afebrile. The patient is feeling slightly better, breathing comfortably. No chest pain, shortness of breath or cough. No abdominal pain. Urinary symptoms have improved. No diarrhea. PHYSICAL EXAMINATION: Blood pressure is 97/57, pulse of 72, temperature 98.4. She is 98% on room air. General description is a middle-aged female lying in bed in no distress. RESPIRATORY SYSTEM: Unlabored breathing. Clear to auscultation anteriorly. HEART: S1, S2. Regular rate and rhythm. ABDOMEN: Soft. No tenderness. LABS: Hemoglobin 13.6, white count 7.6, BUN of 6, creatinine 0.63. Blood culture negative. Urine culture unfortunately not collected. DIAGNOSTIC IMPRESSION AND PLAN: Patient with a fever. Source is likely Gram-negative urinary tract infection. Unfortunately urine cultures were not done. However, the patient clinically is responding to the Rocephin, which will be continued. Monitor clinical course closely. MMODL / IJN: [id number] /
[2019-10-11] MEDS: KETOROLAC 15 MG/ML 1 ML VIAL IVP SCH ×3 (05:05→18:31)
[2019-10-11] MEDS: HYDROcodone/APAP 5-325MG 1 EACH TAB PO PRN ×3 (07:45→22:07)
[2019-10-11 09:39] LABS: Basophils # (A) 0.1 k/uL (0-0.2); Basophils % (A) 1 %; Eosinophils # (A) 0.3 k/uL (0-0.7); Eosinophils % (A) 3 %; HGB 13.8 gm/dL (11.4-16.0); Lymphocytes % (A) 25 %; MCH 31.4 pg (25.0-35.0); MCHC 32.8 g/dL (31.0-37.0); MCV 95.8 fL (80.0-100.0); Mean Platelet Volume 7.2; Monocytes # (A) 0.7 k/uL (0-1.0); Monocytes % (A) 8 %; Neutrophils # (A) 4.8 k/uL (1.3-7.7); Neutrophils % (A) 59 %; Platelet Count 129 k/uL (150-450); RBC 4.38 m/uL (3.80-5.40); RDW 12.1 % (11.5-15.5)
[2019-10-11 09:44] LABS: African American GFR (CKD) >90 (>60 ml/min/1.73 sqM); Anion Gap 4 mmol/L; Blood Urea Nitrogen 6 mg/dL (7-17); Calcium 8.2 mg/dL (8.4-10.2); Carbon Dioxide 25 mmol/L (22-30); Chloride 109 mmol/L (98-107); Glucose 93 mg/dL (74-99); Non-African American GFR(CKD) >90 (>60 ml/min/1.73 sqM); Potassium 4.6 mmol/L (3.5-5.1); Sodium 138 mmol/L (137-145)
[2019-10-11] MEDS: SODIUM CHLORIDE 0.9% 1,000 ML IV SCH ×2 (11:46→16:04)
--- NOTE | 2019-10-11 14:50 | PN ---
PROGRESS NOTE DATE OF SERVICE: 10/11/2019 This is a 28-year-old gentleman who was admitted with throat pain and neck pain possibly had a viral syndrome. The patient is on broad-spectrum IV antibiotics. No chest pain. No palpitations. There is no neck stiffness. PHYSICAL EXAMINATION: Alert and oriented x3. Pulse 58, blood pressure 101/60, respirations 16, temperature 98.4, pulse ox 98% on room air skin: RESPIRATORY SYSTEM:: Breath sounds diminished at the bases, no rhonchi, no crackles. ABDOMEN: Soft, nontender. NERVOUS SYSTEM: No neck stiffness. LABS: WBC 8 platelets 129. ASSESSMENT: 1. Fever, throat pain, possible upper respiratory infection, possible acute viral syndrome. COVID-19 rule out. Headache for evaluation post secondary to viral syndrome. 2. Increased WBC, improved. 3. Thrombocytopenia secondary to viral syndrome. Abnormal CAT scan showed subcarinal lymphadenopathy. 4. Urinary tract infection, present on admission with possible early sepsis, present on admission. 5. History of VSD repair. 6. History of anxiety, depression, bipolar. 7. History of continued ongoing nicotine dependence. 8. FULL CODE. RECOMMENDATION: Continue current medications. Empiric antibiotics. Repeat labs. Closely follow with Infectious Disease. Further recommendations to follow. Recommend close followup with Dr. Chun regarding the thrombocytopenia, which is rather stable at this time. Further recommendations to follow. MMODL / IJN: [id number] /
--- NOTE | 2019-10-11 15:14 | PN ---
PROGRESS NOTE DATE OF SERVICE: 10/10/2019 On exam, vitals are stable. Pulse is 77, blood pressure 103/54, respiration 18, temperature 98.2, pulse ox 97%. HEENT: Conjunctivae normal. CARDIOVASCULAR SYSTEM: S1, S2 muffled. RESPIRATORY SYSTEM: Breath sounds diminished at the bases. No rhonchi. No crackles. ABDOMEN: Soft, non-tender. NERVOUS SYSTEM: No focal deficit. EXAMINATION OF THE NECK: Movements are slightly painful. No neck stiffness. MMODL / IJN: [id number] /
--- NOTE | 2019-10-11 17:50 | PN ---
PROGRESS NOTE DATE OF SERVICE: 10/11/2019 REASON FOR FOLLOW UP: Pyelonephritis, UTI. INTERVAL HISTORY: The patient is currently afebrile, patient is breathing comfortably. Denies having any chest pain. No shortness of breath or cough. No nausea, no vomiting. No abdominal pain or diarrhea. PHYSICAL EXAMINATION: Blood pressure 130/67, pulse of 73, temperature 98.2. She is 99% on room air. General description is a middle-aged female, lying in bed in no distress. RESPIRATORY SYSTEM: Unlabored breathing, clear to auscultation anteriorly. HEART: S1, S2. Regular rate and rhythm. ABDOMEN: Soft, no tenderness. LABS: Hemoglobin is 13.8, white count of 8.0, BUN of 6, creatinine 0.56. Blood culture so far negative. DIAGNOSTIC IMPRESSION AND PLAN: Patient admitted to hospital with fever, did symptoms likely concerning UTI and pyelonephritis. Patient clinically responded to the Rocephin 2 g daily to continue. Waiting for urine culture to finalize to determine her discharge antibiotics. Continue supportive care. MMODL / IJN: [id number] /
[2019-10-11] MEDS: PRENATAL VIT-IRON-FOLIC ACID 1 EACH CAP PO SCH (20:40)
[2019-10-12] MEDS: SODIUM CHLORIDE 0.9% 1,000 ML IV SCH ×2 (04:34→10:54)
[2019-10-12] MEDS: HYDROcodone/APAP 5-325MG 1 EACH TAB PO PRN (04:41)
[2019-10-12] MEDS ORDERED: ASPIRIN-ACET-CAFF 250-250-65MG 1 EACH TAB PO PRN (12:50)
[2019-10-12] MEDS ORDERED: BUTALB/APAP/CAFF 50-325-40MG TAB PO STA (12:50)
--- NOTE | 2019-10-12 12:59 | PN ---
PROGRESS NOTE DATE OF SERVICE: 10/12/2019 REASON FOR FOLLOWUP: Urinary tract infection. INTERVAL HISTORY: The patient is currently afebrile. Patient is feeling better. Breathing comfortably. Slight nausea, but no vomiting. No diarrhea. Urinary symptoms improved. PHYSICAL EXAMINATION: Blood pressure 97/58 with a pulse of 58, temperature 98, she is 99% on room air. General description is a young female lying in bed in no distress. RESPIRATORY SYSTEM: Unlabored breathing, clear to auscultation anteriorly. HEART: S1, S2. Regular rate and rhythm. ABDOMEN: Soft, no tenderness. LABS: Hemoglobin 13.1, white count of 8.0. BUN of 6, creatinine 0.56. Urine came back negative. Blood culture negative. DIAGNOSTIC IMPRESSION AND PLAN: Patient admitted to the hospital with fever, urinary symptoms, likely urinary tract infection or pyelonephritis. The patient clinically improved with Rocephin. Plan is to finish therapy with oral Ceftin for about a week. Discussed with the nurse practitioner working on discharge. Continue supportive care. MMODL / IJN: [id number] /
[2019-10-12 15:03] VITALS: BP 102/63; PULSE 74; RESP 16; TEMP 98.4
--- NOTE | 2019-10-13 08:25 | P.DS ---
Providers Date of admission: 10/10/19 12:27 Expected date of discharge: 10/12/19 Attending physician: Monserrat Dean Consults: 10/08/19 23:39 Consult Physician Routine Consulting Provider: Usha Quintana Consult Reason/Comments: Headache, fever Do you want consulting provider notified?: Yes, Notify in am [facility] Course: Final diagnosis Fever, throat pain, possible upper respiratory infection, possible acute viral syndrome. Covid 19 ruled out headache for evaluation post secondary to viral syndrome Increased WBC, improved Thrombocytopenia secondary to viral syndrome. Abnormal CAT scan showed subcarinal lymphadenopathy Urinary tract infection, present on admission with possible early sepsis, present on admission History of VSD repair History of anxiety, depression, bipolar History of continued ongoing nicotine dependence history of migraine headaches Full code Discharge disposition Patient is being discharged in a stable condition with guarded prognosis to home. Patient will follow-up with Dr. Chun in the outpatient setting upon discharge. Patient is to continue with antibiotics in the form of oral Ceftin 500 mg twice daily for the next 7 days to complete the course. Patient also instructed to follow-up with Dr. Tarah haney for findings on the CT within the next 1-2 weeks for possible PET scan/ repeat CT. Total time taken is greater than 35 minutes. History of present illness This is a 28-year-old female who was recently admitted with throat pain and neck pain possibly had a viral syndrome and was being closely monitored. Infectious disease was following. She was initiated on IV antibiotics in the form of ceftriaxone and showed improvement. Possibility of urinary tract infection being the culprit. Patient will continue with oral Ceftin 500 mg twice daily for the next 1 week to complete the course. Urine cultures were negative. Patient is having a headache today and states she has a history of migraines but does not normally take anything for this. Patient denies any visual disturbance, lightheadedness, or dizziness. Patient states she is feeling better and would like to go home today. Currently no reports of chest pain, shortness of breath, or palpitations. Patient is afebrile. No reports of nausea or vomiting and patient is tolerating diet. Patient will be discharged home today. On exam vital signs are stable. Temp is 98.0F, pulse is 58, respirations are 14, blood pressure is 97/58, oxygen saturation is 99% on room air. Cardio S1, S2 are muffled. Respiratory system shows diminished breath sounds at the bases with no wheezing or rhonchi noted. Abdomen is soft and nontender. Nervous system shows no focal deficits. Please refer to medication reconciliation sheet for a list of medications. Patient Condition at Discharge: Stable Plan - Discharge Summary Discharge Rx Participant: No New Discharge Prescriptions: New Cefuroxime Axetil [Ceftin] 500 mg PO BID 7 Days #14 tab HYDROcodone/APAP 5-325MG [[place] 5-325] 1 each PO Q6HR PRN #12 tab PRN Reason: Pain Continue Pnv,Calcium 72/Iron/Folic Acid [ Plus Tablet] 1 tab PO HS Biotin (Unknown Strength) 1 tab PO HS Acetaminophen [Tylenol] 1,000 mg PO DAILY PRN PRN Reason: Pain Ergocalciferol [Vitamin D2 (DRISDOL)] 50,000 unit PO Q7D Discharge Medication List Acetaminophen [Tylenol] 1,000 mg PO DAILY PRN 10/08/19 [History] Biotin (Unknown Strength) 1 tab PO HS 10/08/19 [History] Ergocalciferol [Vitamin D2 (DRISDOL)] 50,000 unit PO Q7D 10/08/19 [History] Pnv,Calcium 72/Iron/Folic Acid [ Plus Tablet] 1 tab PO HS 10/08/19 [ History] Cefuroxime Axetil [Ceftin] 500 mg PO BID 7 Days #14 tab 10/12/19 [Rx] HYDROcodone/APAP 5-325MG [[place] 5-325] 1 each PO Q6HR PRN #12 tab 10/12/19 [Rx] Follow up Appointment(s)/Referral(s): Preeti Chun MD [Primary Care Provider] - 10/19/19 10:00 am Molly Rascon MD [STAFF PHYSICIAN] - 10/27/19 2:30 pm (abnormal ct chest with lymphadenopathy-out pt eval) Patient Instructions/Handouts: Urinary Tract Infection in Women (DC), Viral Syndrome (DC) Activity/Diet/Wound Care/Special Instructions: Activity Limited until follow-up Follow-up with primary care provider upon discharge Continue current diet Continue with antibiotics for 1 week until finished Follow-up with pulmonary in the outpatient setting to discuss further possible PET scan CAT scan Encourage fluids and rest Discharge Disposition: HOME SELF-CARE
== END 2019-10-12 15:33 | disposition home or self-care (01) | DRG 872 ==
LOC: EC 17:47 → 4SSUR 21:12 → OBSVTOIN 10-10 12:27
PROVIDERS: ADMIT Hospitalist; ATTEND Hospitalist
DX: A41.89 Other specified sepsis (principal); N39.0 Urinary tract infection, site not specified; B34.9 Viral infection, unspecified; F17.200 Nicotine dependence, unspecified, uncomplicated; F41.9 Anxiety disorder, unspecified; F31.9 Bipolar disorder, unspecified; E86.0 Dehydration; R59.1 Generalized enlarged lymph nodes; Z20.828 Contact with and (suspected) exposure to other viral communicable diseases; D69.59 Other secondary thrombocytopenia; G43.909 Migraine, unspecified, not intractable, without status migrainosus; Z79.899 Other long term (current) drug therapy; Z98.890 Other specified postprocedural states; Z87.440 Personal history of urinary (tract) infections; Z80.1 Family history of malignant neoplasm of trachea, bronchus and lung; Z87.74 Personal history of (corrected) congenital malformations of heart and circulatory system
CPT/HCPCS: 36415; 70450; 71046; 71275; 80048; 80053; 81001; 81025; 83605; 85025; 85379; 85652; 86140; 86308; 87040; 87081; 87086; 87430; 96361; 96374; 96375; 99285

== ENCOUNTER → 2020-08-22 | Outpatient (CLI) | payer OTHER ==
[2020-08-22 10:07] LABS: HCG,Qualitative Serum Not Detected
[2020-08-22 10:10] LABS: Basophils # (A) 0.1 k/uL (0-0.2); Basophils % (A) 1 %; Eosinophils # (A) 0.3 k/uL (0-0.7); Eosinophils % (A) 2 %; HCT 45.7 % (34.0-46.0); HGB 15.4 gm/dL (11.4-16.0); Lymphocytes # (A) 3.4 k/uL (1.0-4.8); Lymphocytes % (A) 25 %; MCH 31.5 pg (25.0-35.0); MCHC 33.8 g/dL (31.0-37.0); MCV 93.3 fL (80.0-100.0); Mean Platelet Volume 6.6; Monocytes # (A) 0.6 k/uL (0-1.0); Monocytes % (A) 4 %; Neutrophils % (A) 67 %; Platelet Count 200 k/uL (150-450); RDW 13.1 % (11.5-15.5); WBC 13.5 k/uL (3.8-10.6)
[2020-08-22 10:19] LABS: Potassium 4.3 mmol/L (3.5-5.1)
[2020-08-22 10:20] LABS: ALT 22 U/L (4-34); AST 16 U/L (14-36); African American GFR (CKD) >90 (>60 ml/min/1.73 sqM); Albumin 4.2 g/dL (3.5-5.0); Albumin/Globulin Ratio 1.6; Alkaline Phosphatase 43 U/L (38-126); Anion Gap 9 mmol/L; Blood Urea Nitrogen 13 mg/dL (7-17); Calcium 8.9 mg/dL (8.4-10.2); Carbon Dioxide 21 mmol/L (22-30); Chloride 110 mmol/L (98-107); Globulin 2.7 g/dL; Glucose 97 mg/dL (74-99); Non-African American GFR(CKD) >90 (>60 ml/min/1.73 sqM); Sodium 140 mmol/L (137-145); Total Bilirubin 0.3 mg/dL (0.2-1.3); Total Protein 6.9 g/dL (6.3-8.2)
--- NOTE | 2020-08-22 14:38 | XR ---
EXAMINATION TYPE: XR chest 2V DATE OF EXAM: 08/22/2020 CLINICAL HISTORY: R05 COUGH. TECHNIQUE: Frontal and lateral view of the chest. COMPARISON: 10/08/2019 FINDINGS: The cardiomediastinal silhouette is within normal limits for size. Pulmonary vasculature i s normal. There is no focal air space opacity. No pleural effusion. No pneumothorax seen. No acute d isplaced osseous fracture. IMPRESSION: No acute cardiopulmonary process.
[2020-08-22 23:28] LABS: Chol/HDL Ratio 3.79; Cholesterol 220 mg/dL (0-200); LDL Cholesterol,Calculated 140.8 mg/dL (0.0-131.0)
== END | disposition home or self-care (01) ==
LOC: LABWHC1 09:22
PROVIDERS: ATTEND Internal Medicine
DX: E55.9 Vitamin D deficiency, unspecified (principal); E78.2 Mixed hyperlipidemia; N91.2 Amenorrhea, unspecified; E06.3 Autoimmune thyroiditis; R05 Cough
CPT/HCPCS: 36415; 71046; 80053; 80061; 82306; 84439; 84443; 84703; 85025

== ENCOUNTER 2020-12-06 22:29 | Emergency (ER) | payer OTHER ==
[2020-12-06 22:46] VITALS: RESP 20
[2020-12-06 23:16] LABS: Appearance,Urine Cloudy (Clear); Bacteria,Urine Rare /hpf; Bilirubin,Urine Negative (Negative); Blood,Urine Large (Negative); Color,Urine Yellow; Glucose,Urine (UA) Negative (Negative); Ketones,Urine Trace (Negative); Leukocyte Esterase,Urine Small (Negative); Mucus,Urine Few /hpf; Nitrite,Urine Negative (Negative); Protein,Urine Negative (Negative); RBC,Urine 2 /hpf (0-5); Specific Gravity,Urine 1.019 (1.001-1.035); Squamous Epithelial Cell,Urine 4 /hpf (0-4); Urobilinogen,Urine <2.0 mg/dL (<2.0); WBC,Urine 4 /hpf (0-5)
[2020-12-06] MEDS ORDERED: SODIUM CHLORIDE 0.9% 1,000 ML IV ONE (23:55)
[2020-12-07] MEDS ORDERED: IBUPROFEN IV 800 MG in SODIUM CHLORIDE 0.9% 250 ML IV ONE ×2
[2020-12-07] MEDS ORDERED: LOPERAMIDE 2 MG CAP PO ONE
--- NOTE | 2020-12-07 00:30 | XR ---
EXAMINATION TYPE: XR soft tissue neck DATE OF EXAM: 12/07/2020 COMPARISON: NONE HISTORY: Sore throat TECHNIQUE: 2 views FINDINGS: Epiglottis is normal. Tonsils and adenoids appear normal. Subglottic trachea appears normal . Prevertebral soft tissues appear normal. Cervical vertebra have normal alignment. IMPRESSION: Normal cervical soft tissue exam.
[2020-12-07 00:37] LABS: Basophils # (A) 0.1 k/uL (0-0.2); Basophils % (A) 1 %; Eosinophils # (A) 0.3 k/uL (0-0.7); Eosinophils % (A) 2 %; HCT 43.6 % (34.0-46.0); HGB 15.3 gm/dL (11.4-16.0); Lymphocytes # (A) 2.8 k/uL (1.0-4.8); Lymphocytes % (A) 15 %; MCH 32.9 pg (25.0-35.0); MCHC 35.1 g/dL (31.0-37.0); MCV 93.7 fL (80.0-100.0); Mean Platelet Volume 7.4; Monocytes # (A) 1.2 k/uL (0-1.0); Monocytes % (A) 7 %; Neutrophils # (A) 13.6 k/uL (1.3-7.7); Neutrophils % (A) 75 %; Platelet Count 180 k/uL (150-450); RBC 4.66 m/uL (3.80-5.40); RDW 12.6 % (11.5-15.5); WBC 18.2 k/uL (3.8-10.6)
[2020-12-07 00:47] LABS: ALT 16 U/L (4-34); AST 19 U/L (14-36); African American GFR (CKD) >90 (>60 ml/min/1.73 sqM); Albumin 4.3 g/dL (3.5-5.0); Alkaline Phosphatase 43 U/L (38-126); Anion Gap 8 mmol/L; Blood Urea Nitrogen 11 mg/dL (7-17); Carbon Dioxide 19 mmol/L (22-30); Chloride 107 mmol/L (98-107); Glucose 99 mg/dL (74-99); Non-African American GFR(CKD) >90 (>60 ml/min/1.73 sqM); Potassium 4.1 mmol/L (3.5-5.1); Sodium 134 mmol/L (137-145); Total Bilirubin 0.5 mg/dL (0.2-1.3); Total Protein 7.3 g/dL (6.3-8.2)
--- NOTE | 2020-12-07 01:03 | ED ---
General Adult HPI - General Chief complaint: Fever Stated complaint: Fever,Body Ache Time Seen by Provider: 12/06/20 23:38 Source: patient Mode of arrival: ambulatory Limitations: no limitations - History of Present Illness Initial comments: 30-year-old female patient presents to the emergency department today for evaluation of fever. States fever started last night is persisted throughout the day. States temperature got as high as 105F this afternoon. States she did take Tylenol around 8 PM. She does report sore throat. Reports body aches with sharp stabbing pains around her body intermittently. She denies headache, blurred vision, double vision. Denies any cough or congestion. Reports nausea but denies any vomiting. Denies any constipation or diarrhea. Denies any hematuria, dysuria, urinary frequency, urinary urgency. Denies chance of . Has not had influenza vaccine or Covid vaccine. Denies any sick contacts or recent travel. Denies any rash or wounds. Patient denies any recent shortness of breath, chest pain, abdominal pain, back pain, numbness, tingling, dizziness, weakness, visual changes, or any other complaints. - Related Data Home Medications Medication Instructions Recorded Confirmed Acetaminophen [Tylenol] 1,000 mg PO DAILY PRN 10/08/19 10/08/19 Biotin (Unknown Strength) 1 tab PO HS 10/08/19 10/08/19 Ergocalciferol [Vitamin D2 50,000 unit PO Q7D 10/08/19 10/08/19 (DRISDOL)] Pnv,Calcium 72/Iron/Folic Acid 1 tab PO HS 10/08/19 10/08/19 [ Plus Tablet] Previous Rx's Medication Instructions Recorded Cefuroxime Axetil [Ceftin] 500 mg PO BID 7 Days #14 tab 10/12/19 HYDROcodone/APAP 5-325MG [[place] 1 each PO Q6HR PRN #12 tab 10/12/19 5-325] Allergies Allergy/AdvReac Type Severity Reaction Status Date / Time No Known Allergies Allergy Verified 12/06/20 22:46 Review of Systems ROS Statement: Those systems with pertinent positive or pertinent negative responses have been documented in the HPI. ROS Other: All systems not noted in ROS Statement are negative. Past Medical History Past Medical History: No Reported History Additional Past Medical History / Comment(s): VSD History of Any Multi-Drug Resistant Organisms: None Reported Past Surgical History: No Surgical Hx Reported Additional Past Surgical History / Comment(s): EGD, Past Anesthesia/Blood Transfusion Reactions: No Reported Reaction Past Psychological History: Anxiety, Bipolar, Depression Smoking Status: Current every day smoker Past Alcohol Use History: Occasional Past Drug Use History: None Reported - Past Family History Mother Family Medical History: No Reported History General Exam Limitations: no limitations General appearance: alert, in no apparent distress, other (This is a well- developed, well-nourished adult female patient in no acute distress. Vital signs upon presentation temperature 102.3F. Pulse 104, respirations 20, blood pressure 114/77, pulse ox 98% on room air.) Eye exam: Present: normal appearance, PERRL, EOMI. Absent: scleral icterus, conjunctival injection, periorbital swelling ENT exam: Present: normal exam, mucous membranes moist, TM's normal bilaterally. Absent: normal oropharynx Neck exam: Present: normal inspection. Absent: tenderness, meningismus, lymphadenopathy Respiratory exam: Present: normal lung sounds bilaterally. Absent: respiratory distress, wheezes, rales, rhonchi, stridor Cardiovascular Exam: Present: normal rhythm, tachycardia, normal heart sounds. Absent: systolic murmur, diastolic murmur, rubs, gallop, clicks GI/Abdominal exam: Present: soft, normal bowel sounds. Absent: distended, tenderness, guarding, rebound, rigid Neurological exam: Present: alert, oriented X3, CN II-XII intact Psychiatric exam: Present: normal affect, normal mood Skin exam: Present: warm, dry, intact, normal color. Absent: rash Course Vital Signs 12/06/20 12/07/20 22:42 01:00 Temperature 102.3 F H 99.4 F Pulse Rate 104 H 72 Respiratory 20 20 Rate Blood Pressure 114/77 113/37 O2 Sat by Pulse 98 96 Oximetry Medical Decision Making - Medical Decision Making 30 year-old female patient presents to the emergency department for evaluation of fever with T-max at home is 105, body aches, and nausea. Physical examination did reveal soft non-tender abdomen. Pelvic exam revealed no cervical motion tenderness, mild bilateral adnexal tenderness. Urinalysis shows no infection. She reported sore throat, no pharyngeal erythema or tonsillar hypertrophy, XR of soft tissue neck was negative. Labs reviewed and showed elevated white blood cell count 18, elevated neutrophils, monocytes. Remainder of labs unremarkable. Chest xray negative. Did do vaginal cultures. Blood cultures sent. I did discuss findings and results with her. She will be discharged to await culture results. She is instructed to follow-up with her primary care physician for recheck moody bergman. She is instructed to maintain low threshold for return if symptoms worsen or change. She verbalizes understanding and agrees with this plan. Case discussed with my attending Dr. Meade. - Lab Data Result diagrams: 12/07/20 00:05 12/07/20 00:05 Lab Results 12/06/20 12/06/20 12/06/20 Range/Units 22:48 22:48 22:48 WBC (3.8-10.6) k/uL RBC (3.80-5.40) m/uL Hgb (11.4-16.0) gm/dL Hct (34.0-46.0) % MCV (80.0-100.0) fL MCH (25.0-35.0) pg MCHC (31.0-37.0) g/dL RDW (11.5-15.5) % Plt Count (150-450) k/uL MPV Neutrophils % % Lymphocytes % % Monocytes % % Eosinophils % % Basophils % % Neutrophils # (1.3-7.7) k/uL Lymphocytes # (1.0-4.8) k/uL Monocytes # (0-1.0) k/uL Eosinophils # (0-0.7) k/uL Basophils # (0-0.2) k/uL Sodium (137-145) mmol/L Potassium (3.5-5.1) mmol/L Chloride (98-107) mmol/L Carbon Dioxide (22-30) mmol/L Anion Gap mmol/L BUN (7-17) mg/dL Creatinine (0.52-1.04) mg/dL Est GFR (CKD-EPI)AfAm (>60 ml/min/1.73 sqM) Est GFR (CKD-EPI)NonAf (>60 ml/min/1.73 sqM) Glucose (74-99) mg/dL Plasma Lactic Acid Chin (0.7-2.0) mmol/L Calcium (8.4-10.2) mg/dL Total Bilirubin (0.2-1.3) mg/dL AST (14-36) U/L ALT (4-34) U/L Alkaline Phosphatase (38-126) U/L Total Protein (6.3-8.2) g/dL Albumin (3.5-5.0) g/dL Urine Color Yellow Urine Appearance Cloudy H (Clear) Urine pH 6.0 (5.0-8.0) Ur Specific [place] 1.019 (1.001-1.035) Urine Protein Negative (Negative) Urine Glucose (UA) Negative (Negative) Urine Ketones Trace H (Negative) Urine Blood Large H (Negative) Urine Nitrite Negative (Negative) Urine Bilirubin Negative (Negative) Urine Urobilinogen <2.0 (<2.0) mg/dL Ur Leukocyte Esterase Small H (Negative) Urine RBC 2 (0-5) /hpf Urine WBC 4 (0-5) /hpf Ur Squamous Epith Cells 4 (0-4) /hpf Urine Bacteria Rare H (None) /hpf Urine Mucus Few H (None) /hpf Urine HCG, Qual Not Detected (Not Detectd) Coronavirus (PCR) Not Detected (Not Detectd) Heterophile Antibody (Negative) Group A Strep Rapid (Negative) 12/07/20 12/07/20 12/07/20 Range/Units 00:05 00:05 00:05 WBC 18.2 H (3.8-10.6) k/uL RBC 4.66 (3.80-5.40) m/uL Hgb 15.3 (11.4-16.0) gm/dL Hct 43.6 (34.0-46.0) % MCV 93.7 (80.0-100.0) fL MCH 32.9 (25.0-35.0) pg MCHC 35.1 (31.0-37.0) g/dL RDW 12.6 (11.5-15.5) % Plt Count 180 (150-450) k/uL MPV 7.4 Neutrophils % 75 % Lymphocytes % 15 % Monocytes % 7 % Eosinophils % 2 % Basophils % 1 % Neutrophils # 13.6 H (1.3-7.7) k/uL Lymphocytes # 2.8 (1.0-4.8) k/uL Monocytes # 1.2 H (0-1.0) k/uL Eosinophils # 0.3 (0-0.7) k/uL Basophils # 0.1 (0-0.2) k/uL Sodium 134 L (137-145) mmol/L Potassium 4.1 (3.5-5.1) mmol/L Chloride 107 (98-107) mmol/L Carbon Dioxide 19 L (22-30) mmol/L Anion Gap 8 mmol/L BUN 11 (7-17) mg/dL Creatinine 0.61 (0.52-1.04) mg/dL Est GFR (CKD-EPI)AfAm >90 (>60 ml/min/1.73 sqM) Est GFR (CKD-EPI)NonAf >90 (>60 ml/min/1.73 sqM) Glucose 99 (74-99) mg/dL Plasma Lactic Acid Chin (0.7-2.0) mmol/L Calcium 9.0 (8.4-10.2) mg/dL Total Bilirubin 0.5 (0.2-1.3) mg/dL AST 19 (14-36) U/L ALT 16 (4-34) U/L Alkaline Phosphatase 43 (38-126) U/L Total Protein 7.3 (6.3-8.2) g/dL Albumin 4.3 (3.5-5.0) g/dL Urine Color Urine Appearance (Clear) Urine pH (5.0-8.0) Ur Specific [place] (1.001-1.035) Urine Protein (Negative) Urine Glucose (UA) (Negative) Urine Ketones (Negative) Urine Blood (Negative) Urine Nitrite (Negative) Urine Bilirubin (Negative) Urine Urobilinogen (<2.0) mg/dL Ur Leukocyte Esterase (Negative) Urine RBC (0-5) /hpf Urine WBC (0-5) /hpf Ur Squamous Epith Cells (0-4) /hpf Urine Bacteria (None) /hpf Urine Mucus (None) /hpf Urine HCG, Qual (Not Detectd) Coronavirus (PCR) (Not Detectd) Heterophile Antibody Negative (Negative) Group A Strep Rapid (Negative) 12/07/20 12/07/20 Range/Units 00:05 00:05 WBC (3.8-10.6) k/uL RBC (3.80-5.40) m/uL Hgb (11.4-16.0) gm/dL Hct (34.0-46.0) % MCV (80.0-100.0) fL MCH (25.0-35.0) pg MCHC (31.0-37.0) g/dL RDW (11.5-15.5) % Plt Count (150-450) k/uL MPV Neutrophils % % Lymphocytes % % Monocytes % % Eosinophils % % Basophils % % Neutrophils # (1.3-7.7) k/uL Lymphocytes # (1.0-4.8) k/uL Monocytes # (0-1.0) k/uL Eosinophils # (0-0.7) k/uL Basophils # (0-0.2) k/uL Sodium (137-145) mmol/L Potassium (3.5-5.1) mmol/L Chloride (98-107) mmol/L Carbon Dioxide (22-30) mmol/L Anion Gap mmol/L BUN (7-17) mg/dL Creatinine (0.52-1.04) mg/dL Est GFR (CKD-EPI)AfAm (>60 ml/min/1.73 sqM) Est GFR (CKD-EPI)NonAf (>60 ml/min/1.73 sqM) Glucose (74-99) mg/dL Plasma Lactic Acid Chin 0.7 (0.7-2.0) mmol/L Calcium (8.4-10.2) mg/dL Total Bilirubin (0.2-1.3) mg/dL AST (14-36) U/L ALT (4-34) U/L Alkaline Phosphatase (38-126) U/L Total Protein (6.3-8.2) g/dL Albumin (3.5-5.0) g/dL Urine Color Urine Appearance (Clear) Urine pH (5.0-8.0) Ur Specific [place] (1.001-1.035) Urine Protein (Negative) Urine Glucose (UA) (Negative) Urine Ketones (Negative) Urine Blood (Negative) Urine Nitrite (Negative) Urine Bilirubin (Negative) Urine Urobilinogen (<2.0) mg/dL Ur Leukocyte Esterase (Negative) Urine RBC (0-5) /hpf Urine WBC (0-5) /hpf Ur Squamous Epith Cells (0-4) /hpf Urine Bacteria (None) /hpf Urine Mucus (None) /hpf Urine HCG, Qual (Not Detectd) Coronavirus (PCR) (Not Detectd) Heterophile Antibody (Negative) Group A Strep Rapid Negative (Negative) - Radiology Data Radiology results: report reviewed, image reviewed Two-view x-ray of the chest is obtained. Report was reviewed in its entirety. Impression by Dr. Kohli shows normal chest. No change. 2 views of the soft tissue neck were obtained. Report was reviewed in its entirety. Impression by Dr. Kohli shows normal cervical soft tissue exam. Disposition Clinical Impression: Fever, Leukocytosis Disposition: HOME SELF-CARE Condition: Good Instructions (If sedation given, give patient instructions): Fever in Adults (ED), Leukocytosis (ED) Additional Instructions: Await culture results. Take tylenol and motrin together every 6 hours for fever control. Follow up with your primary care physician for recheck in 1-2 days. Return for any new, worsening, or concerning symptoms. Is patient prescribed a controlled substance at d/c from ED?: No Referrals: Katie Villanueva MD [Primary Care Provider] - 1-2 days Time of Disposition: 01:41
--- NOTE | 2020-12-07 01:20 | XR ---
EXAMINATION TYPE: XR chest 2V DATE OF EXAM: 12/07/2020 COMPARISON: 08/22/2020 HISTORY: Fever TECHNIQUE: 2 views FINDINGS: Heart and mediastinum are normal. Lungs are clear. Diaphragm is normal. Bony thorax appears normal. IMPRESSION: Normal chest. No change.
[2020-12-07 01:47] VITALS: BP 113/37; PULSE 72; TEMP 99.4
== END 2020-12-07 02:05 | disposition home or self-care (01) ==
LOC: EC 22:29
DX: R50.9 Fever, unspecified (principal); D72.829 Elevated white blood cell count, unspecified; F41.9 Anxiety disorder, unspecified; F31.9 Bipolar disorder, unspecified; F17.200 Nicotine dependence, unspecified, uncomplicated
CPT/HCPCS: 99283; 96365; 36415; 80053; 83605; 85025; 86308; 81001; 81025; 87040; 87808; 87491; 87591; 87070; 87081; 87430; 87635; 70360; 71046; J1741

== ENCOUNTER 2020-12-09 01:20 | Emergency (ER) | payer OTHER ==
[2020-12-09 01:34] VITALS: RESP 18; TEMP 98.1
--- NOTE | 2020-12-09 02:04 | ED ---
General Adult HPI - General Chief complaint: Recheck/Abnormal Lab/Rx Stated complaint: ENT Time Seen by Provider: 12/09/20 01:29 Source: patient Mode of arrival: ambulatory Limitations: no limitations - History of Present Illness Initial comments: 30 year-old female patient presents to the ED for evaluation of continued fever, chills, body aches. She was called and told to return to the emergency department if still symptomatic due to positive blood culture from a couple of days ago. She states that her throat feels more sore and she has a ringing in her ears. States she still has been having some fevers at home. She did take medication today. Denies any vomiting. Denies rash, wounds, or IV drug use. Does report chronic smokers cough with no sputum production. States cough is not worse than usual. Patient denies any recent rash, chest pain, abdominal pain, nausea, vomiting, diarrhea, constipation, back pain, numbness, tingling, dizziness, weakness, hematuria, dysuria, urinary urgency, urinary frequency, headache, visual changes, or any other complaints. - Related Data Home Medications Medication Instructions Recorded Confirmed Acetaminophen [Tylenol] 1,000 mg PO DAILY PRN 10/08/19 10/08/19 Biotin (Unknown Strength) 1 tab PO HS 10/08/19 10/08/19 Ergocalciferol [Vitamin D2 50,000 unit PO Q7D 10/08/19 10/08/19 (DRISDOL)] Pnv,Calcium 72/Iron/Folic Acid 1 tab PO HS 10/08/19 10/08/19 [ Plus Tablet] Previous Rx's Medication Instructions Recorded Cefuroxime Axetil [Ceftin] 500 mg PO BID 7 Days #14 tab 10/12/19 HYDROcodone/APAP 5-325MG [[place] 1 each PO Q6HR PRN #12 tab 10/12/19 5-325] Amoxicillin 875 mg PO Q12HR #20 tablet 12/09/20 Allergies Allergy/AdvReac Type Severity Reaction Status Date / Time No Known Allergies Allergy Verified 12/09/20 01:34 Review of Systems ROS Statement: Those systems with pertinent positive or pertinent negative responses have been documented in the HPI. ROS Other: All systems not noted in ROS Statement are negative. Past Medical History Past Medical History: No Reported History Additional Past Medical History / Comment(s): VSD History of Any Multi-Drug Resistant Organisms: None Reported Past Surgical History: No Surgical Hx Reported Additional Past Surgical History / Comment(s): EGD, Past Anesthesia/Blood Transfusion Reactions: No Reported Reaction Past Psychological History: Anxiety, Bipolar, Depression Smoking Status: Current every day smoker Past Alcohol Use History: Occasional Past Drug Use History: None Reported - Past Family History Mother Family Medical History: No Reported History General Exam Limitations: no limitations General appearance: alert, in no apparent distress, other (This is a well- developed, well-nourished adult female patient in no acute distress.) Eye exam: Present: normal appearance, PERRL, EOMI. Absent: scleral icterus, conjunctival injection, periorbital swelling ENT exam: Present: normal exam, mucous membranes moist. Absent: normal oropharynx (Pharyngeal erythema. No tonsillar hypertrophy or exudate. Tonsils are symmetric, uvula midline.) Respiratory exam: Present: normal lung sounds bilaterally. Absent: respiratory distress, wheezes, rales, rhonchi, stridor Cardiovascular Exam: Present: regular rate, normal rhythm, normal heart sounds. Absent: systolic murmur, diastolic murmur, rubs, gallop, clicks GI/Abdominal exam: Present: soft, normal bowel sounds. Absent: distended, tenderness, guarding, rebound, rigid Neurological exam: Present: alert, oriented X3, CN II-XII intact Psychiatric exam: Present: normal affect, normal mood Skin exam: Present: warm, dry, intact, normal color. Absent: rash Course Vital Signs 12/09/20 01:32 Temperature 98.1 F Pulse Rate 80 Respiratory 18 Rate Blood Pressure 109/64 O2 Sat by Pulse 96 Oximetry Medical Decision Making - Medical Decision Making 30-year-old female patient presented to the emergency department today for evaluation of fever, chills, body aches. She was called to come back in due to a positive blood culture. Physical examination did reveal some pharyngeal erythema. No tonsillar hypertrophy or exudate. No lymphadenopathy. Labs reviewed and did reveal improved white blood cell count at 11.8. Lactic acid is normal. Vital signs are unremarkable. We did redraw blood cultures. She'll be started on amoxicillin for tonsillitis here to be discharged follow-up with the primary care physician for recheck in 1-2 days. Return parameters were discussed in detail. She verbalizes understanding and agrees with this plan. My attending is Dr. Meade. - Lab Data Result diagrams: 12/09/20 02:09 12/09/20 02:09 Lab Results 12/09/20 12/09/20 12/09/20 Range/Units 02:09 02:09 02:09 WBC 11.9 H (3.8-10.6) k/uL RBC 4.61 (3.80-5.40) m/uL Hgb 14.9 (11.4-16.0) gm/dL Hct 42.5 (34.0-46.0) % MCV 92.1 (80.0-100.0) fL MCH 32.3 (25.0-35.0) pg MCHC 35.1 (31.0-37.0) g/dL RDW 12.5 (11.5-15.5) % Plt Count 205 (150-450) k/uL MPV 7.5 Neutrophils % 53 % Lymphocytes % 35 % Monocytes % 6 % Eosinophils % 4 % Basophils % 1 % Neutrophils # 6.3 (1.3-7.7) k/uL Lymphocytes # 4.1 (1.0-4.8) k/uL Monocytes # 0.7 (0-1.0) k/uL Eosinophils # 0.4 (0-0.7) k/uL Basophils # 0.1 (0-0.2) k/uL Sodium 138 (137-145) mmol/L Potassium 4.3 (3.5-5.1) mmol/L Chloride 106 (98-107) mmol/L Carbon Dioxide 22 (22-30) mmol/L Anion Gap 10 mmol/L BUN 12 (7-17) mg/dL Creatinine 0.56 (0.52-1.04) mg/dL Est GFR (CKD-EPI)AfAm >90 (>60 ml/min/1.73 sqM) Est GFR (CKD-EPI)NonAf >90 (>60 ml/min/1.73 sqM) Glucose 94 (74-99) mg/dL Plasma Lactic Acid Chin (0.7-2.0) mmol/L Calcium 9.7 (8.4-10.2) mg/dL Total Bilirubin 0.2 (0.2-1.3) mg/dL AST 17 (14-36) U/L ALT 16 (4-34) U/L Alkaline Phosphatase 47 (38-126) U/L Total Protein 7.5 (6.3-8.2) g/dL Albumin 4.4 (3.5-5.0) g/dL Urine Color Light Yellow Urine Appearance Cloudy H (Clear) Urine pH 6.0 (5.0-8.0) Ur Specific [place] 1.013 (1.001-1.035) Urine Protein Negative (Negative) Urine Glucose (UA) Negative (Negative) Urine Ketones Negative (Negative) Urine Blood Moderate H (Negative) Urine Nitrite Negative (Negative) Urine Bilirubin Negative (Negative) Urine Urobilinogen <2.0 (<2.0) mg/dL Ur Leukocyte Esterase Moderate H (Negative) Urine RBC 2 (0-5) /hpf Urine WBC 6 H (0-5) /hpf Ur Squamous Epith Cells 10 H (0-4) /hpf Urine Bacteria Rare H (None) /hpf Urine Mucus Rare H (None) /hpf 12/09/20 Range/Units 02:09 WBC (3.8-10.6) k/uL RBC (3.80-5.40) m/uL Hgb (11.4-16.0) gm/dL Hct (34.0-46.0) % MCV (80.0-100.0) fL MCH (25.0-35.0) pg MCHC (31.0-37.0) g/dL RDW (11.5-15.5) % Plt Count (150-450) k/uL MPV Neutrophils % % Lymphocytes % % Monocytes % % Eosinophils % % Basophils % % Neutrophils # (1.3-7.7) k/uL Lymphocytes # (1.0-4.8) k/uL Monocytes # (0-1.0) k/uL Eosinophils # (0-0.7) k/uL Basophils # (0-0.2) k/uL Sodium (137-145) mmol/L Potassium (3.5-5.1) mmol/L Chloride (98-107) mmol/L Carbon Dioxide (22-30) mmol/L Anion Gap mmol/L BUN (7-17) mg/dL Creatinine (0.52-1.04) mg/dL Est GFR (CKD-EPI)AfAm (>60 ml/min/1.73 sqM) Est GFR (CKD-EPI)NonAf (>60 ml/min/1.73 sqM) Glucose (74-99) mg/dL Plasma Lactic Acid Chin 1.3 (0.7-2.0) mmol/L Calcium (8.4-10.2) mg/dL Total Bilirubin (0.2-1.3) mg/dL AST (14-36) U/L ALT (4-34) U/L Alkaline Phosphatase (38-126) U/L Total Protein (6.3-8.2) g/dL Albumin (3.5-5.0) g/dL Urine Color Urine Appearance (Clear) Urine pH (5.0-8.0) Ur Specific [place] (1.001-1.035) Urine Protein (Negative) Urine Glucose (UA) (Negative) Urine Ketones (Negative) Urine Blood (Negative) Urine Nitrite (Negative) Urine Bilirubin (Negative) Urine Urobilinogen (<2.0) mg/dL Ur Leukocyte Esterase (Negative) Urine RBC (0-5) /hpf Urine WBC (0-5) /hpf Ur Squamous Epith Cells (0-4) /hpf Urine Bacteria (None) /hpf Urine Mucus (None) /hpf - Radiology Data Radiology results: report reviewed, image reviewed Two-view x-ray of the chest was obtained. Report was reviewed in its entirety. Impression by Dr. Kohli shows normal chest. No change. Disposition Clinical Impression: Tonsillitis Disposition: HOME SELF-CARE Condition: Good Instructions (If sedation given, give patient instructions): Tonsillitis (ED) Additional Instructions: Complete antibiotic prescription in full. Follow-up with your primary care physician for recheck in 1-2 days. Return to the emergency department for any new, worsening, or concerning symptoms. Prescriptions: Amoxicillin 875 mg PO Q12HR #20 tablet Is patient prescribed a controlled substance at d/c from ED?: No Referrals: Katie Villanueva MD [Primary Care Provider] - 1-2 days Time of Disposition: 03:08
--- NOTE | 2020-12-09 02:14 | XR ---
EXAMINATION TYPE: XR chest 2V DATE OF EXAM: 12/09/2020 COMPARISON: 12/07/2020 HISTORY: Cough and fever TECHNIQUE: 2 views FINDINGS: Heart and mediastinum are normal. Lungs are clear. Diaphragm is normal. Bony thorax is inta ct. IMPRESSION: Normal chest. No change.
[2020-12-09 02:43] LABS: Appearance,Urine Cloudy (Clear); Bacteria,Urine Rare /hpf; Basophils # (A) 0.1 k/uL (0-0.2); Basophils % (A) 1 %; Bilirubin,Urine Negative (Negative); Blood,Urine Moderate (Negative); Color,Urine Light Yellow; Eosinophils # (A) 0.4 k/uL (0-0.7); Eosinophils % (A) 4 %; Glucose,Urine (UA) Negative (Negative); HCT 42.5 % (34.0-46.0); HGB 14.9 gm/dL (11.4-16.0); Ketones,Urine Negative (Negative); Leukocyte Esterase,Urine Moderate (Negative); Lymphocytes # (A) 4.1 k/uL (1.0-4.8); Lymphocytes % (A) 35 %; MCH 32.3 pg (25.0-35.0); MCHC 35.1 g/dL (31.0-37.0); MCV 92.1 fL (80.0-100.0); Mean Platelet Volume 7.5; Monocytes # (A) 0.7 k/uL (0-1.0); Monocytes % (A) 6 %; Mucus,Urine Rare /hpf; Neutrophils # (A) 6.3 k/uL (1.3-7.7); Neutrophils % (A) 53 %; Nitrite,Urine Negative (Negative); Platelet Count 205 k/uL (150-450); Protein,Urine Negative (Negative); RBC 4.61 m/uL (3.80-5.40); RBC,Urine 2 /hpf (0-5); RDW 12.5 % (11.5-15.5); Specific Gravity,Urine 1.013 (1.001-1.035); Squamous Epithelial Cell,Urine 10 /hpf (0-4); Urobilinogen,Urine <2.0 mg/dL (<2.0); WBC 11.9 k/uL (3.8-10.6); WBC,Urine 6 /hpf (0-5)
[2020-12-09 02:54] LABS: ALT 16 U/L (4-34); AST 17 U/L (14-36); African American GFR (CKD) >90 (>60 ml/min/1.73 sqM); Albumin 4.4 g/dL (3.5-5.0); Alkaline Phosphatase 47 U/L (38-126); Anion Gap 10 mmol/L; Blood Urea Nitrogen 12 mg/dL (7-17); Calcium 9.7 mg/dL (8.4-10.2); Carbon Dioxide 22 mmol/L (22-30); Chloride 106 mmol/L (98-107); Glucose 94 mg/dL (74-99); Non-African American GFR(CKD) >90 (>60 ml/min/1.73 sqM); Potassium 4.3 mmol/L (3.5-5.1); Sodium 138 mmol/L (137-145); Total Bilirubin 0.2 mg/dL (0.2-1.3); Total Protein 7.5 g/dL (6.3-8.2)
[2020-12-09] MEDS ORDERED: AMOXICILLIN 875 MG TAB PO ONE (03:20)
[2020-12-09 03:48] VITALS: BP 114/74; PULSE 75
== END 2020-12-09 03:48 | disposition home or self-care (01) ==
LOC: EC 01:20
DX: J03.90 Acute tonsillitis, unspecified (principal); F41.9 Anxiety disorder, unspecified; F31.9 Bipolar disorder, unspecified; F17.200 Nicotine dependence, unspecified, uncomplicated
CPT/HCPCS: 36415; 71046; 80053; 81001; 83605; 85025; 87040; 99283

== ENCOUNTER 2021-12-25 16:17 | Inpatient (IN) | payer OTHER ==
[2021-12-25] MEDS ORDERED: DINOPROSTONE 10 MG INSERT.ER VAGINAL ONE (18:06)
[2021-12-25] MEDS ORDERED: BUTORPHANOL 1 MG/ML 1 ML VIAL IV PRN (18:06)
--- NOTE | 2021-12-25 18:40 | US ---
EXAMINATION TYPE: US OB BPP wo non-stress DATE OF EXAM: 12/25/2021 COMPARISON: US CLINICAL HISTORY: took long time to get reactive NST. . Hx 2 miscarriages. Due 12/26/21. GA by E DD 39w 6d. TECHNIQUE: Transabdominal (TA). Scoring by the regulatory affairs internship during real-time assessment. FINDINGS: BPP PARAMETERS: PRESENTATION: Vertex HEART RATE: 134 bpm RHYTHM: Normal KYLE: 16.1 cm DIAPHRAGM IMAGED: Yes BPP SCORIN. Breathin (1 episode of breathing of 30 second duration in 30 minutes of scanning time) 2. Movement: 2 (at least 3 discrete body movements in 30 minutes) 3. Tone: 2 (1 episode of active flexion/extension of limb) 4. KYLE: 2 (KYLE index > 5cm) PRODUCTION PLANNING SUPERVISOR NOTES: IMPRESSION: TOTAL SCORE: 8 / 8
--- NOTE | 2021-12-25 18:43 | US ---
EXAMINATION TYPE: US OB limited DATE OF EXAM: 12/25/2021 COMPARISON: US CLINICAL HISTORY: NST NST . Hx 2 miscarriages. TECHNIQUE: Transabdominal (TA) GESTATIONAL AGE / DATING Physician Established: (39 weeks/ 6 days) EDC: 12/26/2021 Dates by LMP: 39 weeks/6 days EDC: 12/26/2021 Dates by First Scan: (40 weeks/ days) EDC: 12/23/2021 Dates by Current Scan: (38 weeks/2 days) EDC: 01/06/2022 SURVEY IUP: Single BIOMETRY PRESENTATION: Vertex BPD: 9.46 cm 38 weeks / 4 days HC: 34.10 cm 39 weeks / 2 days AC: 35.49 cm 39 weeks / 3 days FL: 7.41 cm 37 weeks / 6 days ESTIMATED WEIGHT IN GRAMS: 3646 grams ESTIMATED WEIGHT IN LBS/OZ: 8 lbs. 1 oz. WEIGHT PERCENTAGE BASED ON ESTABLISHED DATES: 54.6% HC/AC: 0.96 Normal FL/AC: 20.88 Normal HEART RATE: 144 bpm RHYTHM: Normal Limited head measurements due to position. IMPRESSION: Single live intrauterine gestation with ultrasound age 38 weeks and 2 days. Additional information as described above.
[2021-12-25] MEDS ORDERED: LACTATED RINGERS 1,000 ML IV SCH (18:45)
[2021-12-25] MEDS ORDERED: LIDOCAINE 0.5% (PF) 5 MG/ML (50 ML SDV) SQ PRN (18:52)
[2021-12-25] MEDS ORDERED: TERBUTALINE 1 MG/ML VIAL SQ PRN (18:52)
--- NOTE | 2021-12-25 18:52 | P.HPOB ---
History of Present Illness H&P Date: 12/25/21 Chief Complaint: IUP at 39-6/7 weeks, category 2 heart tones This is a 31-year-old 3 para 00-0 at 39-6/7 weeks that presents to labor and delivery for induction of labor secondary to category heart tones. Patient has had reassuring testing with a BPP of 8 over 8, KYLE of 16, estimated weight of 8 lbs. 1 oz. Patient does note good movement though she states decreased. heart tones were category 2 in the office, accelerations were appreciated reactivity was not documented. Patient was sent to the hospital for continued monitoring and ultrasound. On bloodwork this patient is a blood type of A+, rubella status immune, RPR is nonreactive, hep Tangela surface engine negative, HIV is negative, she did pass her 1 hour Glucola, group beta strep culture was negative on 11/27. Review of Systems Constitutional: Denies chills, Denies fatigue, Denies fever Ears, nose, mouth and throat: Denies headache Cardiovascular: Reports leg edema Respiratory: Denies dyspnea Gastrointestinal: Denies constipation, Denies diarrhea, Denies nausea, Denies vomiting Genitourinary: Reports Past Medical History Past Medical History: No Reported History Additional Past Medical History / Comment(s): VSD History of Any Multi-Drug Resistant Organisms: None Reported Past Surgical History: No Surgical Hx Reported Additional Past Surgical History / Comment(s): EGD, Past Anesthesia/Blood Transfusion Reactions: No Reported Reaction Smoking Status: Current every day smoker - Past Family History Mother Family Medical History: No Reported History Medications and Allergies Home Medications Medication Instructions Recorded Confirmed Type Vit No.180/Iron/Folic 1 tab PO HS 10/08/19 12/25/21 History [ Plus Vitamin-Mineral] Albuterol Inhaler [Ventolin Hfa 2 puff INHALATION PRN 12/25/21 History Inhaler] Loratadine [Claritin] 10 mg PO DAILY 12/25/21 12/25/21 History Allergies Allergy/AdvReac Type Severity Reaction Status Date / Time No Known Allergies Allergy Verified 12/25/21 16:30 Exam Osteopathic Statement: *. No significant issues noted on an osteopathic structural exam other than those noted in the History and Physical/Consult. 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 heart tones are noted to be category 2 with occasional contractions are noted. Assessment and Plan (1) Term Current Visit: Yes Status: Acute Code(s): Z34.90 - ENCNTR FOR SUPRVSN OF NORMAL , UNSP, UNSP TRIMESTER SNOMED Code(s): 82855747 Plan: 31-year-old at 39-6/7 weeks that was seen for routine visit this afternoon, decreased movement was appreciated, NST was noted to be nonreactive. testing on labor and delivery has been reassuring. Patient is counseled on heart tones and need for delivery given estimated due date of tomorrow. Patient states understanding. Cervidil was placed night without difficulty. Options for analgesia are discussed including Stadol, nitrous, epidural. She ultimately would like an epidural. Questions are answered and she will consider her options. She does have an extensive plan which was reviewed and questions are answered.
[2021-12-25] MEDS ORDERED: OXYTOCIN 30 UNITS/500 ML NS 30 UNIT in SALINE 1 500ML.BAG IV SCH (19:00)
[2021-12-25] MEDS: LACTATED RINGERS 1,000 ML IV SCH (19:02)
[2021-12-25 19:48] LABS: Basophils # (A) 0.1 k/uL (0-0.2); Basophils % (A) 0 %; Eosinophils # (A) 0.1 k/uL (0-0.7); Eosinophils % (A) 1 %; HCT 42.5 % (34.0-46.0); HGB 15.4 gm/dL (11.4-16.0); Lymphocytes # (A) 3.1 k/uL (1.0-4.8); Lymphocytes % (A) 23 %; MCH 33.7 pg (25.0-35.0); MCHC 36.1 g/dL (31.0-37.0); MCV 93.3 fL (80.0-100.0); Monocytes # (A) 0.7 k/uL (0-1.0); Monocytes % (A) 5 %; Neutrophils # (A) 9.1 k/uL (1.3-7.7); Neutrophils % (A) 69 %; Platelet Count 178 k/uL (150-450); RBC 4.56 m/uL (3.80-5.40); RDW 13.6 % (11.5-15.5); WBC 13.3 k/uL (3.8-10.6)
[2021-12-25] MEDS ORDERED: SODIUM CHLORIDE 0.9% 100 ML BAG ONE (23:47)
[2021-12-25] MEDS ORDERED: fentaNYL (PF) 50 MCG/ML 5 ML AMP ONE (23:47)
[2021-12-25] MEDS ORDERED: ROPIVACAINE 5 MG/ML 20 ML AMPULE ONE (23:47)
[2021-12-26] MEDS: PRENATAL VIT-IRON-FOLIC ACID 1 EACH TABLET PO SCH ×2 (00:07→22:23)
[2021-12-26] MEDS: LACTATED RINGERS 1,000 ML IV SCH ×2 (00:07→09:01)
[2021-12-26] MEDS ORDERED: METHYLERGONOVINE 0.2 MG/ML 1 ML AMP IM ONE (10:40)
[2021-12-26] MEDS ORDERED: diphenhydrAMINE 25 MG CAP PO PRN (10:49)
[2021-12-26] MEDS ORDERED: LANOLIN CREAM 5 GM TUBE TOPICAL PRN (10:49)
[2021-12-26] MEDS ORDERED: diphenhydrAMINE 50 MG/ML 1 ML VIAL IVP PRN ×2 (10:49)
[2021-12-26] MEDS ORDERED: HYDROCORTISONE 2.5% RECTAL CREAM 30 GM TUBE RECTAL PRN (10:49)
[2021-12-26] MEDS ORDERED: SIMETHICONE 80 MG CHEWABLE PO PRN (10:49)
[2021-12-26] MEDS ORDERED: diphenhydrAMINE 50 MG CAP PO PRN (10:49)
[2021-12-26] MEDS ORDERED: ZOLPIDEM 5 MG TAB PO PRN (10:49)
[2021-12-26] MEDS ORDERED: BENZOCAINE/MENTHOL SPRAY 1 GM/SPRAY AEROSOL TOPICAL PRN (10:49)
--- NOTE | 2021-12-26 10:55 | P.PROBDLV ---
Vaginal Delivery Note - . Vaginal Delivery Note: Findings viable female delivered at 1027, weight of 7 lbs. 3 oz. 31-year-old 3 para 0020 that presented last evening for Cervidil induction of labor. Patient was admitted and Cervidil was placed. Patient went into labor through the night and the Cervidil was removed. Patient had spontaneous rupture of membranes around 2250. Patient progressed in labor eventually becoming uncomfortable and requested epidural placement. Epidural was placed without difficulty by the anesthesia department. Patient made slow progress therefore Pitocin augmentation of labor was begun. Patient progressed to complete. Patient began pushing and with excellent maternal effort brought the down to a presentation. With additional pushes the anterior/posterior shoulder were delivered followed by the body. The infant was placed in the maternal abdomen, spontaneous cry was noted at . After two-minute delayed the umbo cord was doubly clamped and cut. The placenta was delivered spontaneously intact with a three-vessel cord being noted. Increased bleeding was noted after delivery therefore Methergine was given. The uterus was massaged and it did firm. On inspection the patient's vaginal vault a left periurethral and second-degree midline laceration was appreciated. These were repaired in the usual fashion with 4-0 chromic and 3-0 Rapide respectively. Bleeding was noted to be appropriate for status. Uterus is noted to be firm and below the umbilicus. Rectal exam was performed and found to be normal in nature. All counts were correct 2 at the delivery. Patient and tolerated delivery well and are resting comfortably.
[2021-12-26] MEDS ORDERED: OXYTOCIN 30 UNITS/500 ML NS 30 UNIT in SALINE 1 500ML.BAG IV SCH (11:00)
[2021-12-26] MEDS ORDERED: IBUPROFEN 600 MG TAB PO SCH (11:00)
[2021-12-26] MEDS: NAPROXEN 250 MG TAB PO PRN (11:57)
[2021-12-26] MEDS: ACETAMINOPHEN TAB 325 MG TAB PO PRN (19:16)
[2021-12-26] MEDS: SENNOSIDES-DOCUSATE SODIUM 1 EACH TAB PO SCH (19:16)
[2021-12-27] MEDS: ACETAMINOPHEN TAB 325 MG TAB PO PRN ×2 (05:27→23:19)
[2021-12-27 06:14] LABS: Basophils # (A) 0.1 k/uL (0-0.2); Basophils % (A) 0 %; Eosinophils # (A) 0.2 k/uL (0-0.7); Eosinophils % (A) 2 %; HCT 31.4 % (34.0-46.0); Lymphocytes # (A) 2.7 k/uL (1.0-4.8); Lymphocytes % (A) 20 %; MCHC 34.7 g/dL (31.0-37.0); Mean Platelet Volume 9.5; Monocytes # (A) 0.6 k/uL (0-1.0); Monocytes % (A) 4 %; Neutrophils % (A) 72 %; Platelet Count 137 k/uL (150-450); RDW 14.1 % (11.5-15.5)
[2021-12-27 06:20] LABS: HGB 10.9 gm/dL (11.4-16.0)
[2021-12-27] MEDS: SENNOSIDES-DOCUSATE SODIUM 1 EACH TAB PO SCH ×2 (07:53→21:49)
--- NOTE | 2021-12-27 10:04 | P.PNOBGVD ---
Subjective - Subjective Principal diagnosis: day #1, status post normal spontaneous vaginal delivery Interval history: Patient is doing well overall. She is ambulating and voiding without difficulty. States her pain is controlled. She denies concerns. Her lochia is moderate. She is pumping as her infant is in the nursery on oxygen. Patient reports: Reports appetite normal, Reports voiding normally, Reports pain well controlled, Reports ambulating normally Hiram: doing well (on oxygen in the [facility]) Objective - Latest Vital Signs Latest vital signs: Vital Signs Temp Pulse Resp BP Pulse Ox 12/27/21 08:00 98.6 F 84 16 113/73 96 12/26/21 23:57 98.1 F 73 16 106/64 12/26/21 19:57 98.6 F 73 16 111/74 12/26/21 15:26 98.4 F 77 16 121/78 97 12/26/21 12:48 98 F 94 16 110/61 12/26/21 12:18 75 16 121/61 12/26/21 11:48 97 16 122/66 12/26/21 11:33 89 89 H 121/59 12/26/21 11:18 90 16 129/60 12/26/21 11:03 100 16 124/61 12/26/21 10:48 98 F 96 16 123/75 - Exam Extremities: Present: normal, edema Abdomen: Present: normal appearance Uterus: Present: normal, firm - Labs Labs: Abnormal Lab Results - Last 24 Hours (Table) 12/27/21 Range/Units 06:01 WBC 14.0 H (3.8-10.6) k/uL RBC 3.30 L (3.80-5.40) m/uL Hgb 10.9 L D (11.4-16.0) gm/dL Hct 31.4 L (34.0-46.0) % Plt Count 137 L (150-450) k/uL Neutrophils # 10.0 H (1.3-7.7) k/uL Assessment and Plan (1) Term Current Visit: Yes Status: Acute Code(s): Z34.90 - ENCNTR FOR SUPRVSN OF NORMAL , UNSP, UNSP TRIMESTER SNOMED Code(s): 10706276 (2) Status post vaginal delivery Current Visit: Yes Status: Acute Code(s): LLE6751 - SNOMED Code(s): 330405338 (3) Obstetric vaginal laceration with second degree perineal laceration Current Visit: Yes Status: Acute Code(s): O70.1 - SECOND DEGREE PERINEAL LACERATION DURING DELIVERY SNOMED Code(s): 523329103 Plan: 31-year-old 1 now para 1 status post normal spontaneous vaginal delivery. Patient is doing well . Encouraged increased ambulation. Plan discharge home tomorrow.
[2021-12-27] MEDS: NAPROXEN 250 MG TAB PO PRN (13:42)
[2021-12-27] MEDS: PRENATAL VIT-IRON-FOLIC ACID 1 EACH TABLET PO SCH (21:49)
[2021-12-28 08:55] VITALS: BP 112/69; PULSE 97; RESP 18; TEMP 98.9
[2021-12-28] MEDS: SENNOSIDES-DOCUSATE SODIUM 1 EACH TAB PO SCH (08:56)
--- NOTE | 2021-12-28 10:33 | P.DS ---
Providers Date of admission: 12/25/21 18:02 Expected date of discharge: 12/28/21 Attending physician: Lissett Mooney Primary care physician: Stated None - Discharge Diagnosis(es) (1) Status post vaginal delivery Current Visit: Yes Status: Acute Hospital Course: the patient is a 31-year-old 3 para 0020 admitted at 39-6/7 weeks for induction of labor secondary to a category 2 heart rate tracing in the office. Biophysical profile was 8 out of 8 otherwise. On labor and delivery, shehad Cervidil placed secondary to an unfavorable cervix and made progress overnight. Once in active labor, an epidural catheter was placed for analgesia. She made slow progress and had Pitocin augmentation started and then progressed to complete. She pushed to a normal spontaneous vaginal delivery of a viable 7 lbs. 3 oz. baby with Apgars of 9 at 1 minute and 9 at 5 minutes. Her course was unremarkable with vital signs remained stable and her temperature was afebrile throughout. The did require supplementary oxygen and remains in the nursery at this time but is otherwise doing well. She was deemed stable for discharge on day #2 was discharged home to follow-up in the office in 6 weeks' time routinely. Discharge instructions included calling for any significantly increased bleeding or foul-smelling lochia, significantly increased fever or abdominal pain, perineal complaints, breast complaints, or anything also concerned her. She was additionally instructed to have nothing in the vagina for at least 6 weeks time to include intercourse. She understood her instructions and agrees to follow up as noted above. Discharge medications included continued vitamins as she has opted to breast-feed and ove [id number] analgesic pain medications as needed. Maternal blood type is A+ and rubella status is immune. Procedures: #1. Cervidil cervical ripening #2. epidural analgesia #3. Pitocin augmentation #4. Normal spontaneous vaginal delivery #5. Repair of perineal laceration Patient Condition at Discharge: Stable Plan - Discharge Summary New Discharge Prescriptions: No Action Vit No.180/Iron/Folic [ Plus Vitamin-Mineral] 1 tab PO HS Loratadine [Claritin] 10 mg PO DAILY Albuterol Inhaler [Ventolin Hfa Inhaler] 2 puff INHALATION PRN PRN Reason: Wheezing Discharge Medication List Vit No.180/Iron/Folic [ Plus Vitamin-Mineral] 1 tab PO HS 08/29/20 [History] Albuterol Inhaler [Ventolin Hfa Inhaler] 2 puff INHALATION PRN 12/25/21 [History] Loratadine [Claritin] 10 mg PO DAILY 12/25/21 [History] Follow up Appointment(s)/Referral(s): Lissett Mooney DO [Doctor of Osteopathic Medicine] - 6 Weeks Discharge Disposition: HOME SELF-CARE
== END 2021-12-28 12:00 | disposition home or self-care (01) | DRG 807 ==
LOC: FBPOP 16:17 → 4FBP 18:02
PROVIDERS: ADMIT Obstetrics & Gynecology Obstetrics; ATTEND Obstetrics & Gynecology Obstetrics
PROC: 10E0XZZ Delivery of Products of Conception, External Approach (ICD-10-PCS; principal; 2021-12-26)
PROC: 0KQM0ZZ Repair Perineum Muscle, Open Approach (ICD-10-PCS; 2021-12-26)
PROC: 4A0HXCZ Measurement of Products of Conception, Cardiac Rate, External Approach (ICD-10-PCS; 2021-12-26)
PROC: BY4FZZZ Ultrasonography of Third Trimester, Single Fetus (ICD-10-PCS; 2021-12-26)
PROC: 3E0P7VZ Introduction of Hormone into Female Reproductive, Via Natural or Artificial Opening (ICD-10-PCS; 2021-12-26)
PROC: 3E033VJ Introduction of Other Hormone into Peripheral Vein, Percutaneous Approach (ICD-10-PCS; 2021-12-26)
DX: O42.02 Full-term premature rupture of membranes, onset of labor within 24 hours of rupture (principal); Z37.0 Single live birth; O70.1 Second degree perineal laceration during delivery; O36.8390 Maternal care for abnormalities of the fetal heart rate or rhythm, unspecified trimester, not applicable or unspecified; F17.210 Nicotine dependence, cigarettes, uncomplicated; O99.334 Smoking (tobacco) complicating childbirth; Z3A.39 39 weeks gestation of pregnancy; Z79.899 Other long term (current) drug therapy
CPT/HCPCS: 59025; 76815; 76819; 85025; 86803; 86850; 86900; 86901

== ENCOUNTER 2022-06-17 06:09 | Observation (INO) | payer OTHER ==
[2022-06-17] MEDS ORDERED: MORPHINE SULFATE 4 MG/ML SYRINGE IVP STA (06:29)
--- NOTE | 2022-06-17 06:34 | ED ---
Abdominal Pain HPI - General Chief Complaint: Abdominal Pain Stated Complaint: Pain under right rib Time Seen by Provider: 06/17/22 06:23 Source: patient, RN notes reviewed (GENERAL: No acute distress, well developed, well nourished.) Mode of arrival: wheelchair Limitations: no limitations - History of Present Illness Initial Comments: 31-year-old female presenting to the emergency room with complaints of right upper quadrant pain radiating posteriorly which she reports she thought pecan posteriorly but is now predominantly in the anterior aspect. Pain has been ongoing for approximately a day and a half. She reports that movement and coughing make the pain worse but is unable to identify any alleviating factors. She does report low-grade temperature less than 100.0 last night and diarrhea however she reports IBS and diarrhea is not uncommon for her. She is complaining of chest pressure with her abdominal pain that is diffuse. She denies any orthopnea, diaphoresis, shortness of breath, nausea, vomiting, dysuria, urinary frequency, headache, dizziness, high-grade fevers or chills. In addition to her IBS history she has a past medical history significant for anxiety and bipolar depression. - Related Data Home Medications Medication Instructions Recorded Confirmed Vit No.180/Iron/Folic 1 tab PO HS 10/08/19 12/25/21 [ Plus Vitamin-Mineral] Albuterol Inhaler [Ventolin Hfa 2 puff INHALATION PRN 12/25/21 Inhaler] Loratadine [Claritin] 10 mg PO DAILY 12/25/21 12/25/21 Allergies Allergy/AdvReac Type Severity Reaction Status Date / Time No Known Allergies Allergy Verified 06/17/22 06:18 Review of Systems ROS Statement: Those systems with pertinent positive or pertinent negative responses have been documented in the HPI. ROS Other: All systems not noted in ROS Statement are negative. Past Medical History Additional Past Medical History / Comment(s): IBS History of Any Multi-Drug Resistant Organisms: C-DIFF Date of last positivie culture/infection: 2014 MDRO Source:: stool Past Surgical History: Tubal Ligation Additional Past Surgical History / Comment(s): EGD, Past Anesthesia/Blood Transfusion Reactions: No Reported Reaction Past Psychological History: Anxiety, Bipolar, Depression Smoking Status: Current every day smoker, Vaper Past Alcohol Use History: Occasional Past Drug Use History: None Reported - Past Family History Mother Family Medical History: No Reported History General Exam - General Exam Comments Initial Comments: GENERAL: No acute distress, well developed, well nourished. HEENT: Normocephalic, atraumatic. Pupils equal, round, reactive to light. Moist mucous membranes. LUNGS: No respiratory distress. Clear to auscultation, no adventitious sounds, no use of accessory muscles. HEART: Regular rate and rhythm without murmur, rub, or gallop. ABDOMEN: Normal bowel sounds. Soft, non-distended. Right upper quadrant tenderness, no guarding or rebound tenderness. No tenderness in any other quad rant. BACK: Normal inspection. No CVA tenderness. EXTREMITIES: No edema. No tenderness. Moves all extremities. NEUROLOGIC: Alert & oriented x 3. CN II-XII grossly intact. PSYCHIATRIC: Normal affect and behavior. DERMATOLOGIC: Skin intact, without rashes or lesions noted. Limitations: no limitations Course Vital Signs 06/17/22 06/17/22 06:13 08:06 Temperature 98 F 98.4 F Pulse Rate 99 82 Respiratory 18 18 Rate Blood Pressure 96/62 110/58 O2 Sat by Pulse 96 98 Oximetry Medical Decision Making - Medical Decision Making Was pt. sent in by a medical professional or institution (, PA, HEEL BRUSHER, urgent care, hospital, or long term...) When possible be specific @ -No Did you speak to anyone other than the patient for history (EMS, parent, family, police, friend...)? What history was obtained from this source @ -No Did you review nursing and triage notes (agree or disagree)? Why? @ -I reviewed and agree with nursing and triage notes Were old charts reviewed (outside hosp., previous admission, EMS record, old EKG, old radiological studies, urgent care reports/EKG's, long term records)? Report findings @ -Yes, I reviewed procedure note of colonoscopy and EGD completed by Dr. Thompson in 2016 Differential Diagnosis (chest pain, altered mental status, abdominal pain women, abdominal pain men, vaginal bleeding, weakness, fever, dyspnea, syncope, headache, dizziness, GI bleed, back pain, seizure, CVA, palpatations, mental health, musculoskeletal)? @- Differential Abdominal Pain Women: Appendicitis, Cholecystitis, diverticulosis, ischemic bowel, pancreatitis, he patitis, UTI, gastroenteritis, AAA, incarcerated hernia, bowel obstruction, constipation, inflammatory bowel, hepatitis, peptic ulcer disease, splenic infarction, perforated viscus, vulvitis, ovarian torsion, PID, kidney stone, placenta abruption, this is not meant to be an all-inclusive list EKG interpreted by me (3pts min.). @ -Sinus rhythm, ventricular rate 74 bpm, NE interval 126 ms, QRS duration 80 ms, QT/QTC 306/413 ms, PRT axes 64, 84, 70 X-rays interpreted by me (1pt min.). @ -None done CT interpreted by me (1pt min.). @ -None done U/S (1pt. min.). @ -Ultrasound not interpreted by me per radiologist findings cholelithiasis with positive Burns's sign, no pericholecystic fluid or wall thickening findings consistent with acute cholecystitis. Mildly prominent common bile duct measuring 0.7 cm. What testing was considered but not performed or refused? (CT, X-rays, U/S, labs)? Why? @ -None What meds were considered but not given or refused? Why? @ -None Did you discuss the management of the patient with other professionals (professionals i.e. , PA, HEEL BRUSHER, lab, RT, psych nurse, manager social, antique clock repairer, teacher, traffic maintenance officer, case technician)? Give summary @ -No Was smoking cessation discussed for >3mins.? @ -No Was critical care preformed (if so, how long)? @ -No Were there social determinants of health that impacted care today? How? (Homelessness, low income, unemployed, alcoholism, drug addiction, transportation, low edu. Level, literacy, decrease access to med. care, longterm, rehab)? @ -No Was there de-escalation of care discussed even if they declined (Discuss DNR or withdrawal of care, Hospice)? DNR status @ -No What co-morbidities impacted this encounter? (DM, HTN, Smoking, COPD, CAD, Cancer, CVA, ARF, Chemo, Hep., AIDS, mental health diagnosis, sleep apnea, morbid obesity)? @ -None Was patient admitted / discharged? Hospital course, mention meds given and route, prescriptions, significant lab abnormalities, going to OR and other pertinent info. @ -31-year-old female presenting to the emergency room with complaints of right upper quadrant pain radiating posteriorly ongoing for approximately a day and a half with increased intensity. Worse with movement or coughing no other associated symptoms. Episodes of diarrhea however history of IBS. Concurrent chest pressure with right upper quadrant pain without any other associated symptoms. Will start workup of right upper quadrant pain with CBC, CMP, amylase, lipase, lactic acid, urinalysis and ultrasound of the gallbladder. Will also obtain urine for however she has a history of tubal ligation. Low probability for cardiovascular nature of chest pressure however given chest procedure will obtain EKG, troponin and magnesium. Will give morphine for pain and monitor response. EKG shows sinus rhythm. Laboratory studies reveal mild leukocytosis at 13.2 with elevated neutrophils 10.0. CMP shows low carbon dioxide 19, elevated chloride 108 sodium, potassium, magnesium and calcium all normal. Renal function and liver function normal, alkaline phosphate, amylase and lipase normal. Troponin negative. Lactic acid normal 1.7. Urinalysis with small leukocyte Estrace and occasional bacteria with a few mucous however epithelial cell contamination is noted. Urine hCG negative. Ultrasound of the gallbladder demonstrates cholelithiasis with positive Burns's sign consistent with acute cholecystitis. 1 L IV fluid given along with 3 g of Unasyn. Pain improved but not resolved with morphine will give Dilaudid Spoke with surgeon national sales director Dr. Craft regarding patient's presentation and workup. He advised admission to his services continuation of antibiotics as already prescribed continuation of analgesics and addition of anti-medics as needed placing patient on a clear liquid diet. Will place these orders. Findings of above discussed with patient and spouse at bedside. She denies any questions at this time. Will admit patient in stable condition to medical surgical unit under surgical s ervices of Dr. Craft on IV antibiotic therapy for acute cholecystitis. Undiagnosed new problem with uncertain prognosis? @ -No Drug Therapy requiring intensive monitoring for toxicity (Heparin, Nitro, Insulin, Cardizem)? @ -No Were any procedures done? @ -No Diagnosis/symptom? @ -Acute cholecystitis Acute, or Chronic, or Acute on Chronic? @ -Acute Uncomplicated (without systemic symptoms) or Complicated (systemic symptoms)? @ -Complicated Side effects of treatment? @ -No Exacerbation, Progression, or Severe Exacerbation? @ -No Poses a threat to life or bodily function? How? (Chest pain, USA, VT, pneumonia, PE, COPD, DKA, ARF, appy, cholecystitis, CVA, Diverticulitis, Homicidal, Suicidal, threat to staff... and all critical care pts) @ -Yes risk for necrosis, sepsis and hepatic failure. Case discussed with Dr. Perdomo. - Lab Data Result diagrams: 06/17/22 06:42 06/17/22 06:42 Lab Results 06/17/22 06/17/22 06/17/22 Range/Units 06:42 06:42 06:42 WBC 13.2 H (3.8-10.6) k/uL RBC 4.70 (3.80-5.40) m/uL Hgb 14.7 (11.4-16.0) gm/dL Hct 44.1 (34.0-46.0) % MCV 93.7 (80.0-100.0) fL MCH 31.2 (25.0-35.0) pg MCHC 33.3 (31.0-37.0) g/dL RDW 12.7 (11.5-15.5) % Plt Count 176 (150-450) k/uL MPV 7.7 Neutrophils % 76 % Lymphocytes % 16 % Monocytes % 5 % Eosinophils % 2 % Basophils % 0 % Neutrophils # 10.0 H (1.3-7.7) k/uL Lymphocytes # 2.1 (1.0-4.8) k/uL Monocytes # 0.7 (0-1.0) k/uL Eosinophils # 0.3 (0-0.7) k/uL Basophils # 0.1 (0-0.2) k/uL Sodium (137-145) mmol/L Potassium (3.5-5.1) mmol/L Chloride (98-107) mmol/L Carbon Dioxide (22-30) mmol/L Anion Gap mmol/L BUN (7-17) mg/dL Creatinine (0.52-1.04) mg/dL Est GFR (CKD-EPI)AfAm (>60 ml/min/1.73 sqM) Est GFR (CKD-EPI)NonAf (>60 ml/min/1.73 sqM) Glucose (74-99) mg/dL Plasma Lactic Acid Chin (0.7-2.0) mmol/L Calcium (8.4-10.2) mg/dL Magnesium (1.6-2.3) mg/dL Total Bilirubin (0.2-1.3) mg/dL AST (14-36) U/L ALT (4-34) U/L Alkaline Phosphatase (38-126) U/L Troponin I (0.000-0.034) ng/mL Total Protein (6.3-8.2) g/dL Albumin (3.5-5.0) g/dL Amylase (30-110) U/L Lipase (23-300) U/L Urine Color Yellow Urine Appearance Clear (Clear) Urine pH 5.5 (5.0-8.0) Ur Specific [facility] 1.022 (1.001-1.035) Urine Protein Negative (Negative) Urine Glucose (UA) Negative (Negative) Urine Ketones Negative (Negative) Urine Blood Negative (Negative) Urine Nitrite Negative (Negative) Urine Bilirubin Negative (Negative) Urine Urobilinogen <2.0 (<2.0) mg/dL Ur Leukocyte Esterase Small H (Negative) Urine RBC 1 (0-5) /hpf Urine WBC 2 (0-5) /hpf Ur Squamous Epith Cells 2 (0-4) /hpf Urine Bacteria Occasional H (None) /hpf Urine Mucus Few H (None) /hpf Urine HCG, Qual Not Detected (Not Detectd) 06/17/22 06/17/22 06/17/22 Range/Units 06:42 06:42 06:42 WBC (3.8-10.6) k/uL RBC (3.80-5.40) m/uL Hgb (11.4-16.0) gm/dL Hct (34.0-46.0) % MCV (80.0-100.0) fL MCH (25.0-35.0) pg MCHC (31.0-37.0) g/dL RDW (11.5-15.5) % Plt Count (150-450) k/uL MPV Neutrophils % % Lymphocytes % % Monocytes % % Eosinophils % % Basophils % % Neutrophils # (1.3-7.7) k/uL Lymphocytes # (1.0-4.8) k/uL Monocytes # (0-1.0) k/uL Eosinophils # (0-0.7) k/uL Basophils # (0-0.2) k/uL Sodium 138 (137-145) mmol/L Potassium 4.3 (3.5-5.1) mmol/L Chloride 108 H (98-107) mmol/L Carbon Dioxide 19 L (22-30) mmol/L Anion Gap 11 mmol/L BUN 13 (7-17) mg/dL Creatinine 0.73 (0.52-1.04) mg/dL Est GFR (CKD-EPI)AfAm >90 (>60 ml/min/1.73 sqM) Est GFR (CKD-EPI)NonAf >90 (>60 ml/min/1.73 sqM) Glucose 111 H (74-99) mg/dL Plasma Lactic Acid Chin 1.7 (0.7-2.0) mmol/L Calcium 8.9 (8.4-10.2) mg/dL Magnesium 1.9 (1.6-2.3) mg/dL Total Bilirubin 0.4 (0.2-1.3) mg/dL AST 19 (14-36) U/L ALT 21 (4-34) U/L Alkaline Phosphatase 57 (38-126) U/L Troponin I (0.000-0.034) ng/mL Total Protein 7.4 (6.3-8.2) g/dL Albumin 4.3 (3.5-5.0) g/dL Amylase 43 (30-110) U/L Lipase 59 (23-300) U/L Urine Color Urine Appearance (Clear) Urine pH (5.0-8.0) Ur Specific [facility] (1.001-1.035) Urine Protein (Negative) Urine Glucose (UA) (Negative) Urine Ketones (Negative) Urine Blood (Negative) Urine Nitrite (Negative) Urine Bilirubin (Negative) Urine Urobilinogen (<2.0) mg/dL Ur Leukocyte Esterase (Negative) Urine RBC (0-5) /hpf Urine WBC (0-5) /hpf Ur Squamous Epith Cells (0-4) /hpf Urine Bacteria (None) /hpf Urine Mucus (None) /hpf Urine HCG, Qual (Not Detectd) 06/17/22 Range/Units 06:42 WBC (3.8-10.6) k/uL RBC (3.80-5.40) m/uL Hgb (11.4-16.0) gm/dL Hct (34.0-46.0) % MCV (80.0-100.0) fL MCH (25.0-35.0) pg MCHC (31.0-37.0) g/dL RDW (11.5-15.5) % Plt Count (150-450) k/uL MPV Neutrophils % % Lymphocytes % % Monocytes % % Eosinophils % % Basophils % % Neutrophils # (1.3-7.7) k/uL Lymphocytes # (1.0-4.8) k/uL Monocytes # (0-1.0) k/uL Eosinophils # (0-0.7) k/uL Basophils # (0-0.2) k/uL Sodium (137-145) mmol/L Potassium (3.5-5.1) mmol/L Chloride (98-107) mmol/L Carbon Dioxide (22-30) mmol/L Anion Gap mmol/L BUN (7-17) mg/dL Creatinine (0.52-1.04) mg/dL Est GFR (CKD-EPI)AfAm (>60 ml/min/1.73 sqM) Est GFR (CKD-EPI)NonAf (>60 ml/min/1.73 sqM) Glucose (74-99) mg/dL Plasma Lactic Acid Chin (0.7-2.0) mmol/L Calcium (8.4-10.2) mg/dL Magnesium (1.6-2.3) mg/dL Total Bilirubin (0.2-1.3) mg/dL AST (14-36) U/L ALT (4-34) U/L Alkaline Phosphatase (38-126) U/L Troponin I <0.012 (0.000-0.034) ng/mL Total Protein (6.3-8.2) g/dL Albumin (3.5-5.0) g/dL Amylase (30-110) U/L Lipase (23-300) U/L Urine Color Urine Appearance (Clear) Urine pH (5.0-8.0) Ur Specific [facility] (1.001-1.035) Urine Protein (Negative) Urine Glucose (UA) (Negative) Urine Ketones (Negative) Urine Blood (Negative) Urine Nitrite (Negative) Urine Bilirubin (Negative) Urine Urobilinogen (<2.0) mg/dL Ur Leukocyte Esterase (Negative) Urine RBC (0-5) /hpf Urine WBC (0-5) /hpf Ur Squamous Epith Cells (0-4) /hpf Urine Bacteria (None) /hpf Urine Mucus (None) /hpf Urine HCG, Qual (Not Detectd) - Radiology Data Radiology results: report reviewed, image reviewed Disposition Clinical Impression: Acute cholecystitis Disposition: ADMITTED IP TO THIS HOSP Condition: Stable Referrals: Katie Villanueva MD [Primary Care Provider] - 1-2 days Time of Disposition: 08:06
[2022-06-17 07:03] LABS: Basophils # (A) 0.1 k/uL (0-0.2); Basophils % (A) 0 %; Eosinophils # (A) 0.3 k/uL (0-0.7); Eosinophils % (A) 2 %; HCT 44.1 % (34.0-46.0); HGB 14.7 gm/dL (11.4-16.0); Lymphocytes # (A) 2.1 k/uL (1.0-4.8); Lymphocytes % (A) 16 %; MCH 31.2 pg (25.0-35.0); MCHC 33.3 g/dL (31.0-37.0); MCV 93.7 fL (80.0-100.0); Mean Platelet Volume 7.7; Monocytes # (A) 0.7 k/uL (0-1.0); Monocytes % (A) 5 %; Neutrophils % (A) 76 %; Platelet Count 176 k/uL (150-450); RDW 12.7 % (11.5-15.5); WBC 13.2 k/uL (3.8-10.6)
[2022-06-17 07:09] LABS: Appearance,Urine Clear (Clear); Bacteria,Urine Occasional /hpf; Bilirubin,Urine Negative (Negative); Blood,Urine Negative (Negative); Color,Urine Yellow; Glucose,Urine (UA) Negative (Negative); Ketones,Urine Negative (Negative); Leukocyte Esterase,Urine Small (Negative); Mucus,Urine Few /hpf; Nitrite,Urine Negative (Negative); PH, Urine 5.5 (5.0-8.0); Protein,Urine Negative (Negative); RBC,Urine 1 /hpf (0-5); Specific Gravity,Urine 1.022 (1.001-1.035); Squamous Epithelial Cell,Urine 2 /hpf (0-4); Urobilinogen,Urine <2.0 mg/dL (<2.0); WBC,Urine 2 /hpf (0-5)
[2022-06-17 07:19] LABS: ALT 21 U/L (4-34); AST 19 U/L (14-36); African American GFR (CKD) >90 (>60 ml/min/1.73 sqM); Albumin 4.3 g/dL (3.5-5.0); Alkaline Phosphatase 57 U/L (38-126); Amylase 43 U/L (30-110); Anion Gap 11 mmol/L; Blood Urea Nitrogen 13 mg/dL (7-17); Calcium 8.9 mg/dL (8.4-10.2); Carbon Dioxide 19 mmol/L (22-30); Chloride 108 mmol/L (98-107); Glucose 111 mg/dL (74-99); Lipase 59 U/L (23-300); Non-African American GFR(CKD) >90 (>60 ml/min/1.73 sqM); Potassium 4.3 mmol/L (3.5-5.1); Sodium 138 mmol/L (137-145); Total Bilirubin 0.4 mg/dL (0.2-1.3); Total Protein 7.4 g/dL (6.3-8.2)
--- NOTE | 2022-06-17 07:48 | US ---
EXAMINATION TYPE: US gallbladder DATE OF EXAM: 06/17/2022 COMPARISON: US 2016 CLINICAL INDICATION: Female, 31 years old with history of RUQ pain; RUQ pain x couple days that radia mariah to back TECHNIQUE: Multiple sonographic images of the right upper quadrant are obtained. FINDINGS: EXAM MEASUREMENTS: Liver Length: 16.7 cm Gallbladder Wall: 0.2 cm CBD: 0.7 cm Right Kidney: 11.0 x 4.4 x 5.1 cm Pancreas: visualized portions wnl, tail limited by overlying midline bowel gas Liver: wnl Gallbladder: 0.8cm hyperechoic non mobile area at neck Evidence for sonographic Burns's sign: yes CBD: dilated Right Kidney: wnl The visualized portion of the pancreas is unremarkable. The tail is not visualized due to overlying b owel gas. Liver is unremarkable without evidence of focal lesion. Gallstone is demonstrated at the ne ck. No wall thickening or pericholecystic fluid. Per quality measurement specialist, positive sonographic Burns sign. C ommon bile duct is mildly prominent measuring up to 0.7 cm. Right kidney is unremarkable without evid ence of hydronephrosis, nephrolithiasis, or solid mass. IMPRESSION: 1. Cholelithiasis with reported positive sonographic Burns sign. No pericholecystic fluid or wall th ickening. Findings are equivocal for acute cholecystitis. Consider further evaluation nuclear medicin e HIDA scan. 2. Mildly prominent common bile duct measuring up to 0.7 cm. This can be further evaluated with MRCP if there is concern for choledocholithiasis.
[2022-06-17] MEDS ORDERED: AMPICILLIN-SULBACTAM 3 GM in SODIUM CHLORIDE 0.9% 100 ML IVPB STA (07:51)
[2022-06-17] MEDS ORDERED: SODIUM CHLORIDE 0.9% 1,000 ML IV STA (07:51)
[2022-06-17] MEDS ORDERED: HYDROmorphone 1 MG/ML 1 ML SYRINGE IVP STA (07:58)
[2022-06-17] MEDS ORDERED: ONDANSETRON 4 MG/2 ML VIAL IVP PRN (08:04)
[2022-06-17] MEDS ORDERED: NALOXONE 0.4 MG/ML 1 ML VIAL IV PRN (08:04)
[2022-06-17] MEDS ORDERED: HYDROmorphone 1 MG/ML 1 ML SYRINGE IVP PRN (08:04)
[2022-06-17] MEDS ORDERED: SODIUM CHLORIDE 0.9% 1,000 ML IV SCH (08:15)
[2022-06-17 09:48] VITALS: RESP 16
[2022-06-17] MEDS ORDERED: AMPICILLIN-SULBACTAM 3 GM in SODIUM CHLORIDE 0.9% 100 ML IVPB SCH ×2 (14:00)
[2022-06-17] MEDS ORDERED: AMPICILLIN-SULBACTAM 3 GM in SODIUM CHLORIDE 0.9% 50 ML IVPB SCH (14:00)
--- NOTE | 2022-06-17 14:01 | P.GSHP ---
History of Present Illness H&P Date: 06/17/22 CHIEF COMPLAINT: Abdominal pain HISTORY OF PRESENT ILLNESS: This is a 31-year-old female who presented with right upper quadrant abdominal pain 1 day. She reports the pain was about a 9 out of 10 when it started. Pain currently 7 out of 10. Patient reports having low-grade temps. She did have an episode of diarrhea. But does have a known history of IBS. Abdominal ultrasound shows evidence of cholelithiasis with positive Burns sign. No pericholecystic fluid or wall thickening. Findings are equivocal for acute cholecystitis. Mildly prominent common bile duct measuring up to 0.7 cm. LFTs and total bilirubin within normal range. Patient admitted to surgical service. Patient seen and examined with Dr. pulliam PAST MEDICAL HISTORY: See below. Anxiety, bipolar depression PAST SURGICAL HISTORY: Tubal ligation MEDICATIONS: See below ALLERGIES: See below SOCIAL HISTORY: No illicit drug use. REVIEW OF SYSTEMS: CONSTITUTIONAL: Denies fever or chills. HEENT: Denies blurred vision, vision changes, or eye pain. Denies hemoptysis CARDIOVASCULAR: Denies chest pain or pressure. RESPIRATORY: No shortness of breath. GASTROINTESTINAL: See HPI for pertinent findings HEMATOLOGIC: Denies bleeding disorders. GENITOURINARY: Denies any blood in urine or increased urinary frequency. SKIN: Denies pruitis. Denies rash. PHYSICAL EXAM: VITAL SIGNS: Reviewed GENERAL: Well-developed in no acute distress. HEENT: No sclera icterus. Extraocular movements grossly intact. Moist buccal mucosa. Head is atraumatic, normocephalic. No nasal drainage. ABDOMEN: Soft. Nondistended. Right upper quadrant tenderness Neuro: Alert and orientated LABORATORY DATA: WBC is 13.2 Hgb 14.7 platelets 176 Sodium 138 potassium 4.3 creatinine 0.73 Lactic acid 1.7 LFTs and total bilirubin within normal range Lipase 59 Urinalysis small leukocyte esterase WBC is only 2 Urine hCG not detected IMAGING: Gallbladder ultrasound as stated above ASSESSMENT: 1. Acute cholecystitis with cholelithiasis and positive Burns's on ultrasound PLAN: -Patient scheduled for laparoscopic cholecystectomy tomorrow, 06/18/[address] -Clear liquid diet today -Nothing by mouth after midnight -Continue IV antibiotics -Continue supportive care Physician Customer Support Coordinator note has been reviewed by physician. Signing provider agrees with the documented findings, assessment, and plan of care. 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, PCOS, hypotension, UTI, sepsis, bronchitis, anemia, vitamin D deficiency, meningitis History of Any Multi-Drug Resistant Organisms: C-DIFF Date of last positivie culture/infection: 2014 MDRO Source:: stool Past Surgical History: Tubal Ligation Additional Past Surgical History / Comment(s): EGD Past Anesthesia/Blood Transfusion Reactions: No Reported Reaction Additional Past Anesthesia/Blood Transfusion Reaction / Comment(s): woke up during anesthesia two times (during colonoscopy) Past Psychological History: Anxiety, Bipolar, Depression Smoking Status: Current every day smoker, Vaper Past Alcohol Use History: Occasional Past Drug Use History: None Reported - Past Family History Mother Family Medical History: Cancer Medications and Allergies Home Medications Medication Instructions Recorded Confirmed Type Vit No.180/Iron/Folic 1 tab PO DAILY 10/08/19 06/17/22 History [ Plus Vitamin-Mineral] Loratadine [Claritin] 10 mg PO DAILY 12/25/21 06/17/22 History Vitamin D3(Unknown Dose) 1 tab PO DAILY 06/17/22 06/17/22 History norethindrone-e.estradioL-iron 1 tab PO DAILY 06/17/22 06/17/22 History [Blisovi Fe 1-20 Tablet] Allergies Allergy/AdvReac Type Severity Reaction Status Date / Time No Known Allergies Allergy Verified 06/17/22 08:48 Surgical - Exam Vital Signs Temp Pulse Resp BP Pulse Ox 98 F 99 18 96/62 96 06/17/22 06:13 06/17/22 06:13 06/17/22 06:13 06/17/22 06:13 06/17/22 06:13 Results - Labs 06/17/22 06:42 06/17/22 06:42 Abnormal Lab Results - Last 24 Hours (Table) 06/17/22 06/17/22 06/17/22 Range/Units 06:42 06:42 06:42 WBC 13.2 H (3.8-10.6) k/uL Neutrophils # 10.0 H (1.3-7.7) k/uL Chloride 108 H (98-107) mmol/L Carbon Dioxide 19 L (22-30) mmol/L Glucose 111 H (74-99) mg/dL Ur Leukocyte Esterase Small H (Negative) Urine Bacteria Occasional H (None) /hpf Urine Mucus Few H (None) /hpf Diabetes panel 06/17/22 Range/Units 06:42 Sodium 138 (137-145) mmol/L Potassium 4.3 (3.5-5.1) mmol/L Chloride 108 H (98-107) mmol/L Carbon Dioxide 19 L (22-30) mmol/L BUN 13 (7-17) mg/dL Creatinine 0.73 (0.52-1.04) mg/dL Glucose 111 H (74-99) mg/dL Calcium 8.9 (8.4-10.2) mg/dL AST 19 (14-36) U/L ALT 21 (4-34) U/L Alkaline Phosphatase 57 (38-126) U/L Total Protein 7.4 (6.3-8.2) g/dL Albumin 4.3 (3.5-5.0) g/dL Calcium panel 06/17/22 Range/Units 06:42 Calcium 8.9 (8.4-10.2) mg/dL Albumin 4.3 (3.5-5.0) g/dL Pituitary panel 06/17/22 Range/Units 06:42 Sodium 138 (137-145) mmol/L Potassium 4.3 (3.5-5.1) mmol/L Chloride 108 H (98-107) mmol/L Carbon Dioxide 19 L (22-30) mmol/L BUN 13 (7-17) mg/dL Creatinine 0.73 (0.52-1.04) mg/dL Glucose 111 H (74-99) mg/dL Calcium 8.9 (8.4-10.2) mg/dL Adrenal panel 06/17/22 Range/Units 06:42 Sodium 138 (137-145) mmol/L Potassium 4.3 (3.5-5.1) mmol/L Chloride 108 H (98-107) mmol/L Carbon Dioxide 19 L (22-30) mmol/L BUN 13 (7-17) mg/dL Creatinine 0.73 (0.52-1.04) mg/dL Glucose 111 H (74-99) mg/dL Calcium 8.9 (8.4-10.2) mg/dL Total Bilirubin 0.4 (0.2-1.3) mg/dL AST 19 (14-36) U/L ALT 21 (4-34) U/L Alkaline Phosphatase 57 (38-126) U/L Total Protein 7.4 (6.3-8.2) g/dL Albumin 4.3 (3.5-5.0) g/dL
[2022-06-17] MEDS ORDERED: PANTOPRAZOLE 40 MG TABLET PO SCH (14:15)
[2022-06-17 16:39] VITALS: BP 109/70; PULSE 73; TEMP 98.2
[2022-06-17] MEDS ORDERED: HEPARIN SODIUM,PORCINE/PF 5,000 UNIT/0.5 ML SYRINGE SQ SCH (21:00)
--- NOTE | 2022-07-10 08:23 | P.DS ---
Providers Date of admission: 06/17/22 08:01 Expected date of discharge: 06/17/22 Attending physician: Dat Craft Consults: 06/17/22 13:57 Consult Physician Routine Consulting Provider: Katie Villanueva Consult Reason/Comments: medical management Do you want consulting provider notified?: Yes Primary care physician: Katie Villanueva Hospital Course: The 31-year-old female who to the hospital with acute cholecystitis. Patient left the hospital AMA day admission. Patient Condition at Discharge: Stable Plan - Discharge Summary Discharge Rx Participant: No New Discharge Prescriptions: No Action Vit No.180/Iron/Folic [ Plus Vitamin-Mineral] 1 tab PO DAILY Loratadine [Claritin] 10 mg PO DAILY Vitamin D3(Unknown Dose) 1 tab PO DAILY norethindrone-e.estradioL-iron [Blisovi Fe 1-20 Tablet] 1 tab PO DAILY Discharge Medication List Vit No.180/Iron/Folic [ Plus Vitamin-Mineral] 1 tab PO DAILY 10/08/19 [History] Loratadine [Claritin] 10 mg PO DAILY 12/25/21 [History] Vitamin D3(Unknown Dose) 1 tab PO DAILY 06/17/22 [History] norethindrone-e.estradioL-iron [Blisovi Fe 1-20 Tablet] 1 tab PO DAILY 06/17/22 [History] Follow up Appointment(s)/Referral(s): Katie Villanueva MD [Primary Care Provider] - 1-2 days Discharge Disposition: LEFT AGAINST MEDICAL ADVICE
== END 2022-06-17 16:34 | disposition left against medical advice (07) ==
LOC: EC 06:09 → 4SSUR 08:01 → INTOOBSV 08:01 → UNDODISIN 08:01 → 4SSUR 08:52 → UNDODISIN 16:34
PROVIDERS: ADMIT Surgery; ATTEND Surgery
DX: K80.00 Calculus of gallbladder with acute cholecystitis without obstruction (principal); I95.9 Hypotension, unspecified; R06.3 Periodic breathing; K21.9 Gastro-esophageal reflux disease without esophagitis; K58.0 Irritable bowel syndrome with diarrhea; I35.0 Nonrheumatic aortic (valve) stenosis; M41.9 Scoliosis, unspecified; Q21.0 Ventricular septal defect; E55.9 Vitamin D deficiency, unspecified; E28.2 Polycystic ovarian syndrome; F31.9 Bipolar disorder, unspecified; F41.9 Anxiety disorder, unspecified; F17.290 Nicotine dependence, other tobacco product, uncomplicated; Z53.29 Procedure and treatment not carried out because of patient's decision for other reasons; Z79.3 Long term (current) use of hormonal contraceptives; Z79.899 Other long term (current) drug therapy; Z71.6 Tobacco abuse counseling; Z16.24 Resistance to multiple antibiotics; Z86.19 Personal history of other infectious and parasitic diseases; Z87.440 Personal history of urinary (tract) infections; Z98.51 Tubal ligation status; Z98.890 Other specified postprocedural states; Z80.9 Family history of malignant neoplasm, unspecified
CPT/HCPCS: 96376; 96366; 96375 ×2; 96365; 99285; 36415; 93005; 80053; 82150; 83605; 83690; 83735; 84484; 85025; 81001; 81025; 76705; G0378; J2270; J2405; J1170; J0295

== ENCOUNTER → 2023-11-21 | Outpatient (CLI) | payer OTHER ==
--- NOTE | 2023-11-21 13:28 | XR ---
EXAMINATION TYPE: XR chest 2V DATE OF EXAM: 11/21/2023 COMPARISON: 12/09/2020 HISTORY: Pin worms TECHNIQUE: Frontal and lateral views of the chest are obtained. FINDINGS: There is no focal air space opacity, pleural effusion, or pneumothorax seen. The cardiac silhouette size is within normal limits. The osseous structures are intact. IMPRESSION: No acute cardiopulmonary process. [facility], Workstation: SHELBY 11/21/2023 1:26 PM
== END | disposition home or self-care (01) ==
LOC: RADXRMAIN 12:56
PROVIDERS: ATTEND Internal Medicine
DX: B80 Enterobiasis (principal)
CPT/HCPCS: 71046

== ENCOUNTER → 2023-11-23 | Outpatient (CLI) | payer OTHER ==
[2023-11-23 15:05] LABS: Basophils # (A) 0.05 X 10*3/uL (0.00-0.10); Basophils % (A) 0.6 %; Eosinophils # (A) 0.35 X 10*3/uL (0.04-0.35); HCT 46.4 % (37.2-46.3); HGB 15.8 g/dL (12.0-15.0); Lymphocytes # (A) 2.83 X 10*3/uL (0.90-5.00); Lymphocytes % (A) 32.7 %; MCH 31.7 pg (27.0-32.0); MCHC 34.1 g/dL (32.0-37.0); MCV 93.2 FL (80.0-97.0); Mean Platelet Volume 10.3 FL (9.5-12.2); Monocytes # (A) 0.55 X 10*3/uL (0.20-1.00); Monocytes % (A) 6.4 %; NRBC Per 100 WBC 0 X 10*3/uL (0.00-0.01); Neutrophils # (A) 4.84 X 10*3/uL (1.80-7.70); Platelet Count 193 X 10*3/uL (140-440); RBC 4.98 X 10*6/uL (4.10-5.20); RDW 12.2 % (11.5-14.5); WBC 8.65 X 10*3/uL (4.50-10.00)
[2023-11-23 15:48] LABS: ALT 13 U/L (8-44); AST 12 U/L (13-35); Albumin 4.6 g/dL (3.8-4.9); Albumin/Globulin Ratio 1.92 Ratio (1.60-3.17); Alkaline Phosphatase 46 U/L (41-126); Blood Urea Nitrogen 12.8 mg/dL (9.0-27.0); Carbon Dioxide 20.9 mmol/L (21.6-31.8); Chloride 106 mmol/L (96-109); Chol/HDL Ratio 4.08 Ratio; Creatine Kinase 60 U/L (26-186); Globulin 2.4 g/dL (1.6-3.3); Glucose 94 mg/dL (70-110); LDL Cholesterol,Calculated 142.1 mg/dL (0.0-131.0); Potassium 4.1 mmol/L (3.5-5.5); Sodium 141 mmol/L (135-145); Total Bilirubin 0.4 mg/dL (0.3-1.2)
[2023-11-23 17:11] LABS: Erythrocyte Sedimentation Rate 6 mm/Hr (0-20)
[2023-11-24 06:31] LABS: Cryptosporidium Antigen Negative (Negative)
== END | disposition home or self-care (01) ==
LOC: LABWHC1 09:04
PROVIDERS: ATTEND Internal Medicine
CPT/HCPCS: 36415; 80053; 80061; 82550; 83036; 83630; 84443; 85025; 85652; 86376; 86800; 87045; 87046; 87328; 87329

== ENCOUNTER → 2024-01-04 | Outpatient (CLI) | payer OTHER ==
--- NOTE | 2024-01-04 11:51 | XR ---
EXAMINATION TYPE: XR lumbar spine with bend/flex DATE OF EXAM: 01/04/2024 11:40 AM COMPARISON: None. CLINICAL INDICATION: Female, 33 years old with history of M54.50 LOW BACK PAIN, UNSPECIFIED M54.2 CER VICALGI; TECHNIQUE: XR lumbar spine with bend/flex views are submitted. FINDINGS: Alignment is anatomic. The pedicles are intact. The transverse processes are intact. There is no s pondylolysis or spondylolisthesis. Mild straightening of the cervical spine with segmentation defect transverse process of L1 mild spurring at multiple levels anteriorly. Limbus deformity L5. IMPRESSION: 1. Mild hypertrophic spurring. Correlate with MRI if concern for disc herniation. [facility], , 01/04/2024 11:48 AM
--- NOTE | 2024-01-04 11:52 | XR ---
EXAMINATION TYPE: XR cervical spine w flex/ext DATE OF EXAM: 01/04/2024 COMPARISON: NONE CLINICAL INDICATION: Female, 33 years old with history of M54.50 LOW BACK PAIN, UNSPECIFIED M54.2 CER VICALGI; TECHNIQUE: 7 views are submitted during flexion and extension. FINDINGS: The odontoid is intact. There are no compression deformities. The prevertebral soft tissue structur es are within normal limits. Mild degenerative disc disease C4-C5 with hypertrophic spurring. On neutral view is a grade 1 anterolisthesis C2-C3. On extension views there is a grade 1 retrolisthesis C3-C4 and C4-C5. On flexion views there is a grade 1 anterolisthesis C2-C3 and C3-C4. Grade 1 retrolisthesis C5-C6. IMPRESSION: 1. Mild degenerative disc disease C4-C5. [facility], , 01/04/2024 11:50 AM
== END | disposition home or self-care (01) ==
LOC: RADXRMAIN 11:08
PROVIDERS: ATTEND Internal Medicine
DX: M50.321 Other cervical disc degeneration at C4-C5 level (principal); M51.27 Other intervertebral disc displacement, lumbosacral region; M47.817 Spondylosis without myelopathy or radiculopathy, lumbosacral region
CPT/HCPCS: 72052; 72114

== ENCOUNTER → 2024-06-30 | Outpatient (CLI) | payer OTHER ==
--- NOTE | 2024-06-30 14:50 | MM ---
Reason for Exam: Screening (asymptomatic). Tissue Density: The breasts are extremely dense, which lowers the sensitivity of mammography. Findings: Analyzed By CAD. Right breast: There is no suspicious group of microcalcifications or new suspicious mass. Left breast: There is no suspicious group of microcalcifications or new suspicious mass. Overall Assessment: Negative, BI-RAD 1 Management: Screening Mammogram of both breasts in [address] [facility] will attempt to contact patient to return for supplemental views and ultrasound if indicated. Patient should continue monthly self-breast exams. A clinical breast exam by your physician is recommended on an annual basis. This exam should not preclude additional follow-up of suspicious palpable abnormalities. Note on Vera scores and lifetime risk: 1. A Vera score greater than 3% is considered moderate risk. If this is the case, consider specialist referral to assess eligibility for a risk reducing agent. 2. If overall lifetime risk for the development of breast cancer is 20% or higher, the patient may qualify for future screening with alternating mammogram and breast MRI. [facility], , 06/30/2024 2:47 PM. Electronically signed and approved by: Dante Mcarthur DO
== END | disposition home or self-care (01) ==
LOC: RADECHMAIN 14:21
PROVIDERS: ATTEND Internal Medicine
DX: Z12.31 Encounter for screening mammogram for malignant neoplasm of breast (principal); R92.343 Mammographic extreme density, bilateral breasts
CPT/HCPCS: 77063; 77067

== ENCOUNTER → 2024-08-29 | Outpatient (CLI) | payer OTHER ==
--- NOTE | 2024-08-30 21:44 | CA ---
Transthoracic Echo Report Name: Natasha Rodriguez Age: 33 Gender: F : 1990 Exam Date: 08/29/2024 15:12 Exam Location: [facility] Ht (in): 67 Wt (lb): 165 Ordering Physician: Katie Villanueva MD Attending/Referring Phys: Katie Villanueva MD [employer] Griselda Monson, GLENDY Procedure CPT: Indications: I35.0 Nonrheumatic aortic (valve) stenosis Cardiac Hx: Technical Quality: Good Contrast 1: Total Dose (mL): Contrast 2: Total Dose (mL): MEASUREMENTS (Male / Female) Normal Values 2D ECHO LV Diastolic Diameter PLAX 5.3 cm 4.2 - 5.9 / 3.9 - 5.3 cm LV Systolic Diameter PLAX 3.4 cm IVS Diastolic Thickness 0.9 cm 0.6 - 1.0 / 0.6 - 0.9 cm LVPW Diastolic Thickness 0.8 cm 0.6 - 1.0 / 0.6 - 0.9 cm LV Relative Wall Thickness 0.3 RV Internal Dim ED PLAX 2.6 cm LA Systolic Diameter LX 3.6 cm 3.0 - 4.0 / 2.7 - 3.8 cm LV Diastolic Volume MOD 4C 102.0 cm??? LV Systolic Volume MOD 4C 51.2 cm??? LV Ejection Fraction MOD 4C 49.8 % LV Cardiac Index MOD 4C 1958.3 cm???/min???m??? LV Diastolic Length 4C 8.0 cm LV Systolic Length 4C 6.6 cm LV Diastolic Volume MOD 2C 92.0 cm??? LV Systolic Volume MOD 2C 36.8 cm??? LV Ejection Fraction MOD 2C 60.0 % LV Cardiac Index MOD 2C 2129.0 cm???/min???m??? LV Diastolic Length 2C 8.1 cm LV Systolic Length 2C 6.6 cm LA Volume 40.5 cm??? 18 - 58 / 22 - 52 cm??? LA Volume Index 21.4 cm???/m??? 16 - 28 cm???/m??? M-MODE Aortic Root Diameter MM 3.2 cm AV Cusp Separation MM 2.1 cm DOPPLER AV Peak Velocity 124.9 cm/s AV Peak Gradient 6.2 mmHg MV Area PHT 3.2 cm??? Mitral E Point Velocity 76.1 cm/s Mitral A Point Velocity 64.8 cm/s Mitral E to A Ratio 1.2 MV Deceleration Time 240.2 ms TR Peak Velocity 193.1 cm/s TR Peak Gradient 14.9 mmHg Right Ventricular Systolic Press 19.9 mmHg FINDINGS Left Ventricle Left ventricular ejection fraction is estimated at 50-55 %. Left ventricular cavity size normal. Left ventricular wall thickness normal. Normal left ventricular wall motion. Right Ventricle Normal right ventricular size. Right ventricular systolic pressure within normal limits. Right Atrium Normal right atrial size. No right atrial thrombus or mass seen. Left Atrium Normal left atrial size. No left atrial thrombus or mass present. Mitral Valve Structurally normal mitral valve. No mitral stenosis, regurgitation or prolapse. Aortic Valve Trileaflet aortic valve. No aortic valve stenosis or regurgitation. Tricuspid Valve Structurally normal tricuspid valve. Trace to mild tricuspid regurgitation. Pulmonic Valve Structurally normal pulmonic valve. No pulmonic regurgitation. Pericardium No pericardial effusion. Aorta Normal size aortic root and proximal ascending aorta. CONCLUSIONS LVEF 50 to 55% No obvious regional wall motion abnormality Normal LV cavity size and wall thickness Normal RV size and systolic function No significant valvular dysfunction Previewed by: Dr Liam Guillen (Electronically Signed) Final Date: 30 August 2024 21:43
== END | disposition home or self-care (01) ==
LOC: RADECHMAIN 15:01
PROVIDERS: ATTEND Internal Medicine
DX: I35.0 Nonrheumatic aortic (valve) stenosis (principal); I07.1 Rheumatic tricuspid insufficiency
CPT/HCPCS: 93306

== ENCOUNTER 2024-09-08 23:17 | Emergency (ER) | payer OTHER ==
[2024-09-08 23:25] VITALS: TEMP 97.5
--- NOTE | 2024-09-09 00:09 | ED ---
Psych HPI - General Chief Complaint: Psychiatric Symptoms Stated Complaint: Mental Health Time Seen by Provider: 09/09/24 00:00 Source: patient, RN notes reviewed Mode of arrival: ambulatory Limitations: no limitations - History of Present Illness Initial Comments: 33-year-old female presented the ER for psychiatric evaluation. Patient reports she has been having frequent severe panic attacks and suicidal thoughts. She reports she is supposed to be celebrating her 1 year wedding anniversary but states she is probably going to be served divorce papers. Patient does admit to a history of suicidal attempts and has been evaluated inpatient approximately 10 years ago. She is currently working outpatient for mental health medications. She denies any suicidal plan, homicidal ideation, hallucinations. No drug or alcohol use. - Related Data Home Medications Medication Instructions Recorded Confirmed Vit No.180/Iron/Folic 1 tab PO DAILY 10/08/19 06/17/22 [ Plus Vitamin-Mineral] Loratadine [Claritin] 10 mg PO DAILY 12/25/21 06/17/22 Vitamin D3(Unknown Dose) 1 tab PO DAILY 06/17/22 06/17/22 norethindrone-e.estradioL-iron 1 tab PO DAILY 06/17/22 06/17/22 [Blisovi Fe 1-20 Tablet] Previous Rx's Medication Instructions Recorded hydrOXYzine HCL 10 mg PO BID PRN #10 tab 09/09/24 Allergies Allergy/AdvReac Type Severity Reaction Status Date / Time No Known Allergies Allergy Verified 06/17/22 08:48 Review of Systems ROS Statement: Those systems with pertinent positive or pertinent negative responses have been documented in the HPI. ROS Other: All systems not noted in ROS Statement are negative. 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, PCOS, hypotension, UTI, sepsis, bronchitis, anemia, vitamin D deficiency, meningitis History of Any Multi-Drug Resistant Organisms: C-DIFF Date of last positivie culture/infection: 2014 MDRO Source:: stool Past Surgical History: Tubal Ligation Additional Past Surgical History / Comment(s): EGD Past Anesthesia/Blood Transfusion Reactions: No Reported Reaction Additional Past Anesthesia/Blood Transfusion Reaction / Comment(s): woke up during anesthesia two times (during colonoscopy) Past Psychological History: Anxiety, Bipolar, Depression Smoking Status: Current every day smoker, Vaper Past Alcohol Use History: Occasional Past Drug Use History: None Reported - Past Family History Mother Family Medical History: Cancer General Exam Limitations: no limitations General appearance: alert, in no apparent distress Respiratory exam: Present: normal lung sounds bilaterally. Absent: respiratory distress, wheezes, rales, rhonchi, stridor Cardiovascular Exam: Present: regular rate, normal rhythm, normal heart sounds. Absent: systolic murmur, diastolic murmur, rubs, gallop, clicks GI/Abdominal exam: Present: soft, normal bowel sounds. Absent: distended, tenderness, guarding, rebound, rigid Neurological exam: Present: alert, oriented X3, CN II-XII intact Psychiatric exam: Present: depressed, suicidal ideation Skin exam: Present: warm, dry, intact, normal color, other (Multiple healed scars bilateral forearms). Absent: rash Course Vital Signs 09/08/24 09/09/24 23:22 02:00 Temperature 97.5 F L Pulse Rate 137 H 88 Respiratory 18 16 Rate Blood Pressure 124/70 102/57 O2 Sat by Pulse 97 97 Oximetry - Reevaluation(s) Reevaluation #1: 09/09/24 01:43 Case discussed with EPS RN, Rob. He reports patient can be discharged as safety plan is in place. He reports patient stated she has suicidal thoughts but states she would never act upon them. Medical Decision Making - Medical Decision Making Was pt. sent in by a medical professional or institution (, PA, HEARING CONSULTANT, urgent care, hospital, or penitentiary...) When possible be specific @ -No Did you speak to anyone other than the patient for history (EMS, parent, family, police, friend...)? What history was obtained from this source @ -No Did you review nursing and triage notes (agree or disagree)? Why? @ -I reviewed and agree with nursing and triage notes Were old charts reviewed (outside hosp., previous admission, EMS record, old EKG, old radiological studies, urgent care reports/EKG's, penitentiary records)? Report findings @ -No old charts were reviewed Differential Diagnosis (chest pain, altered mental status, abdominal pain women, abdominal pain men, vaginal bleeding, weakness, fever, dyspnea, syncope, headache, dizziness, GI bleed, back pain, seizure, CVA, palpatations, mental health, musculoskeletal)? @Differential Mental Health: Depression, anxiety, bipolar, psychosis, schizophrenia, borderline personality, situational depression, adjustment disorder, behavioral disorder, brain tumor, malingering, substance abuse, encephalopathy, medication reaction, dementia, hypothyroidism, degenerative neurologic disorder, lupus.... This is not meant to be all-inclusive list EKG interpreted by me (3pts min.). @ -None done X-rays interpreted by me (1pt min.). @ -None done CT interpreted by me (1pt min.). @ -None done U/S interpreted by me (1pt. min.). @ -None done What testing was considered but not performed or refused? (CT, X-rays, U/S, labs)? Why? @ -None What meds were considered but not given or refused? Why? @ -None Did you discuss the management of the patient with other professionals (professionals i.e. , PA, HEARING CONSULTANT, lab, RT, psych nurse, social media content specialist, immigration lawyer, teacher, fire management officer, continuous pillowcase cutter)? Give summary @ -No Was smoking cessation discussed for >3mins.? @ -No Was critical care preformed (if so, how long)? @ -No Were there social determinants of health that impacted care today? How? (Homelessness, low income, unemployed, alcoholism, drug addiction, transportation, low edu. Level, literacy, decrease access to med. care, residential, rehab)? @ -No Was there de-escalation of care discussed even if they declined (Discuss DNR or withdrawal of care, Hospice)? DNR status @ -No What co-morbidities impacted this encounter? (DM, HTN, Smoking, COPD, CAD, Cancer, CVA, ARF, Chemo, Hep., AIDS, mental health diagnosis, sleep apnea, mor bid obesity)? @ -None Was patient admitted / discharged? Hospital course, mention meds given and route, prescriptions, significant lab abnormalities, going to OR and other pertinent info. @ - discharge. 33 female presented to the ER for evaluation of anxiety attacks and suicidal thoughts with no plan. BAT 0.00. Vital signs stable. Suicide precautions in place. Patient medically cleared for EPS evaluation. Patient evaluated by Rob EPS RN. He states patient to be discharged home with safety plan in place. Hydroxyzine prescribed for anxiety. Patient is comfortable with discharge and feels safe going home. Patient discharged stable condition. Return parameters discussed. Case discussed with ED attending of Dr. Roe Undiagnosed new problem with uncertain prognosis? @ -No Drug Therapy requiring intensive monitoring for toxicity (Heparin, Nitro, Insulin, Cardizem)? @ -No Were any procedures done? @ -No Diagnosis/symptom? @ -Anxiety/encounter for psychiatric evaluation Acute, or Chronic, or Acute on Chronic? @ -Acute Uncomplicated (without systemic symptoms) or Complicated (systemic symptoms)? @ -Uncomplicated Side effects of treatment? @ -No Exacerbation, Progression, or Severe Exacerbation? @ -No Poses a threat to life or bodily function? How? (Chest pain, [place], [place], pneumonia, PE, COPD, DKA, ARF, appy, cholecystitis, CVA, Diverticulitis, Homicidal, Suicidal, threat to staff... and all critical care pts) @ -No Disposition Clinical Impression: Anxiety, Encounter for psychiatric assessment Disposition: HOME SELF-CARE Condition: Stable Additional Instructions: Follow-up with PCP. Return to the ER for any new or worsening concerns. Prescriptions: hydrOXYzine HCL 10 mg PO BID PRN #10 tab PRN Reason: Anxiety Is patient prescribed a controlled substance at d/c from ED?: No Referrals: Katie Villanueva MD [Primary Care Provider] - 1-2 days Forms: Who Do I Call?, Outpatient Counseling, Outpatient Therapy List Time of Disposition: 01:43
[2024-09-09 02:02] VITALS: BP 102/57; PULSE 88; RESP 16
== END 2024-09-09 02:02 | disposition home or self-care (01) ==
LOC: EC 23:17
DX: Z00.8 Encounter for other general examination (principal); F41.9 Anxiety disorder, unspecified; F17.290 Nicotine dependence, other tobacco product, uncomplicated
CPT/HCPCS: 82075; 99284